=== PATIENT | female | born 1955 | race Caucasian/White ===

== ENCOUNTER 2017-11-23 09:37 | Emergency (ER) | payer MEDICARE, MEDICAID, SELFPAY ==
[2017-11-23 09:44] VITALS: BP 102/73; PULSE 68; RESP 14; TEMP 36.7; O2SAT 98
--- NOTE | 2017-11-23 10:49 | ED.GENADUL_ITS ---
Disposition Clinical Impression: Left ankle sprain, Contusion of right knee Disposition: HOME Condition: Fair Instructions: Ankle Sprain (ED), Contusion in Adults (ED) Additional Instructions: Encourage rest, ice, elevation. Tylenol and/or ibuprofen as needed, as prescribed. Continue to use the Jesús wrap on the right knee and a lace up ankle brace on the left ankle to help with discomfort and swelling. I have asked our pediatric acute care unit nurse to help facilitate follow-up with primary care clear. If you develop new or worsening symptoms please seek care urgently once again. Prescriptions: Acetaminophen [Tylenol Extra Strength] 1,000 mg PO QID PRN #20 tab PRN Reason: Pain Ibuprofen 600 mg PO QID #20 tablet Referrals: Primary Care Provider [Outside] Medical Decision Making - Medical Decision Making Patient presents today with chief complaint of right knee, left foot and ankle pain. On exam, patient is noted to have some soft tissue swelling on the anterior medial aspect of the right knee. She does have some joint line discomfort anteriorly along the medial aspect. She is able straight leg raise well. No pain to palpation over the patella. Good range of motion. No joint effusion is palpable. Ligamentously intact. Given the level of discomfort and persistent discomfort I feel that imaging is appropriate at this time. Will obtain x-rays. We will also obtain imaging of the patient's left ankle and foot. She is noted to have ecchymosis at the base of the second and third digit. No palpable deformity. She does have swelling of the lateral malleolus of the left ankle. This is where her pain is maximal. However, pain is noted fairly globally about the ankle. She does not have discomfort posteriorly. Achilles is palpated to be intact with negative Edward test. Bilateral calves are soft and nontender. Patient will be given Tylenol and ibuprofen for discomfort. Patient has been taking copious amounts of Tylenol, reports she ran out 4 days ago. Had been taking 2000 mg 6 times daily. We did discuss the risks associated with this and advised against continuing dosing this large. Imaging of the patient's right knee, left ankle and left foot reviewed by radiologist. No acute fracture dislocation is noted. Discussed the findings with the patient. Advised ankle sprain. The right knee seems most consistent with soft tissue swelling and ecchymosis. I have asked nursing staff to place an ankle brace on the left and an Jesús wrap on the right knee. Encourage rest, ice, elevation. Tylenol and/or ibuprofen as needed for discomfort. Advise follow-up with primary care. Patient does not currently have a primary care. I have asked her pediatric acute care unit nurse help facilitate follow- up within the next 2 weeks. Advised she may seek care urgently if she develops new or worsening symptoms. All her questions and concerns were addressed and she is in agreement this plan. Secondary to financial restrictions, patient is requesting Tylenol and Ibuprofen prescriptions. History of Present Illness - General Chief complaint: Orthopedic Stated complaint: ANKLE INJURY Time Seen by Provider: 11/23/17 10:43 Source: patient, RN notes reviewed Mode of arrival: ambulatory Limitations: no limitations - History of Present Illness Initial comments: Patient is a 62-year-old female presenting today with chief complaint of right knee, left foot and left ankle pain. She reports that 10 days ago she tripped while walking in the morning. Reports that she fell on the right side but believes that she suffered a rotational event to the left foot and ankle. States that since that time she has had discomfort, particularly ambulation. Is noted swelling to the affected areas. Immediately noted ecchymosis over the second and third toes of the left foot. Denies any altered sensation. States that she also landed on the left outstretched hand and initially had some wrist discomfort that this is since subsided. Ankle pain is reported to be fairly global, has noted swelling laterally. Feels that she does maintain good range of motion of the left ankle. On the right knee, patient has endorse discomfort and swelling primarily along the anterior medial aspect of the knee. - Related Data Aspirin [Aspir 81] 81 mg PO DAILY 03/29/13 Fluticasone Propionate [Flovent 220MCG] 220 inhaler [facility]N DIRECTED PRN Hydrochlorothiazide 25 mg PO DAILY 03/29/13 Levothyroxine Sodium [Synthroid] 50 mcg PO DAILY 03/29/13 Omeprazole 40 mg PO BID 03/29/13 SUMAtriptan [Imitrex] 100 mg PO DIRECTED PRN 03/29/13 Albuterol [Proair Hfa] 2 puff IH PRN PRN 03/05/14 Ascorbic Acid [Vitamin C] 500 mg PO DAILY 03/05/14 Beclomethasone Dipropionate [QVAR 80MCG] 1 puff IH BID 03/05/14 Cranberry 1,000 mg PO DAILY 03/05/14 Vitamin E 600 mg PO DAILY 03/05/14 Gabapentin 300 mg PO 2 TID #180 tab-cap 10/10/17 Duloxetine HCl [Cymbalta] 60 mg PO BID #60 tab-cap 10/12/17 Methylphenidate HCl 20 mg PO TID #90 tab-cap 10/20/17 Quetiapine Fumarate 100 mg PO 1 04/05 @HS #45 tab-cap 10/20/17 Acetaminophen [Tylenol Extra Strength] 1,000 mg PO QID PRN #20 tab 11/23/17 Atorvastatin Calcium 40 mg PO DAILY 11/23/17 Ferrous Sulfate [Slow Fe] 142 mg PO DAILY 11/23/17 Ibuprofen 600 mg PO QID #20 tablet 11/23/17 Multivitamin [One Daily Multivitamin] 1 tab PO DAILY 11/23/17 Triamcinolone 0.1% Cream [Kenalog 0.1% Cream] 1 applic TP BID 11/23/17 Allergies Allergy/AdvReac Type Severity Reaction Status Date / Time morphine AdvReac Intermediate GI Upset Unverified 11/23/17 09:51 Review of Systems Constitutional: no symptoms reported Respiratory: no symptoms reported Musculoskeletal: as per HPI Skin: as per HPI, change in color. denies: rash, lesions Neurological: as per HPI, abnormal gait. denies: numbness, paresthesias Past Medical History - Past Medical History Asthma, migraine, IBS, iron deficiency anemia, hypertension, dysthymia, hype fibromyalgia, hyperlipidemia, hypothyroidism, rheumatism, PTSD, GERD, depression , PE Surgical history: non-contributory General Exam - General Limitations: no limitations General appearance: alert, in no apparent distress - Respiratory Respiratory exam: Present: normal lung sounds bilaterally. Absent: respiratory distress - Cardiovascular Cardiovascular Exam: Present: regular rate, normal rhythm, normal heart sounds - Extremities Exam Extremities exam: Present: full ROM, tenderness, normal capillary refill, joint swelling. Absent: normal inspection (Exam the patient's right lower extremity is significant for discomfort with palpation about the right knee. Pain is primarily along the anterior medial aspect. She does have some soft tissue swelling of this area. No discoloration. Full range of motion. No effusion. Ligamentously intact on exam. No joint line tenderness is elicited. Exam of the patient's left lower extremity is significant for swelling over the lateral aspect of the ankle. She does have good range of motion but pain is elicited with plantar flexion. Pain over the lateral malleoli as well as the ATFL. Patient has no pain with palpation over the proximal fifth metatarsal. No pain with palpation over the Achilles. Achilles is palpated be intact with a negative Edward test. No pain over the fibular head or neck. Patient is noted to have ecchymosis over the proximal aspect of the second and third toes. No palpable deformity. Pain is elicited with palpation over the the second and third metatarsals.), pedal edema, calf tenderness - Neurological Exam Neurological exam: Present: alert, abnormal gait (Ambulating with antalgic gait) . Absent: motor sensory deficit - Psychiatric Psychiatric exam: Present: normal affect, normal mood - Skin Skin exam: Present: warm, dry, intact. Absent: normal color (Ecchymosis as above) Course Vital Signs - 24 hr 11/23/17 09:44 Temperature 36.7 C Pulse 68 Respiratory 14 Rate Blood Pressure 102/73 Pulse Oximetry 98
--- NOTE | 2017-11-23 11:15 | DI.REPORT_ITS ---
SYMPTOM/DIAGNOSIS: FELL, PAIN RIGHT KNEE: Four views were obtained. No fracture is seen. LEFT ANKLE: Three views were obtained. There is marked soft tissue swelling of the ankle. The ankle mortise appears well maintained. No fracture is seen. LEFT FOOT: Three views were obtained. No fracture is seen. Note is made of hallux valgus deformity with secondary degenerative changes of the first MTP joint.
--- NOTE | 2017-11-24 13:33 | PDOC.ERCMPRO ---
Care Management Progress Note 11/24-Clara ARGUETA requested assistance with a PCP (Juani Leal) f/u in two weeks for ankle sprain. Called Jana who stated she would make her own f/u appt as she is in the process of changing providers.
== END 2017-11-23 11:39 | disposition home or self-care (01) ==
PROVIDERS: Emergency Provider Physician Assistant; PCP Family Medicine
DX: S92.402A Displaced unspecified fracture of left great toe, initial encounter for closed fracture (principal); S80.01XA Contusion of right knee, initial encounter; W01.0XXA Fall on same level from slipping, tripping and stumbling without subsequent striking against object, initial encounter
CPT/HCPCS: 73564; 73610; 73630; 99284 ×2; L1902

== ENCOUNTER → 2018-02-16 10:21 | Outpatient (BNVA) | payer MEDICARE, MEDICAID, SELFPAY | PROVIDERS: PCP Family Medicine; Referring Provider Family Medicine; Visit Provider Orthopaedic Surgery | DX: S80.01XA Contusion of right knee, initial encounter (principal); W01.0XXA Fall on same level from slipping, tripping and stumbling without subsequent striking against object, initial encounter | CPT/HCPCS: 99211; 99213 ==

== ENCOUNTER 2018-07-27 12:21 | Outpatient (REF) | payer MEDICARE, MEDICAID, SELFPAY ==
[2018-07-27 13:39] LABS: Abs Immature Grans 0.02 k/cumm (0.0-0.09); Absolute Basophil Count 0.03 k/cumm (0.0-0.2); Absolute Eosinophil Count 0.21 k/cumm (0.0-0.7); Absolute Lymphocyte Count 2.14 k/cumm (1.2-3.4); Absolute Monocyte Count 0.43 k/cumm (0.11-0.7); Absolute Neutrophil Count 4.13 k/cumm (1.2-6.7); Basophils % 0.4; HCT 37.8 % (36.0-46.0); Immature Grans % 0.3; Lymphocytes % 30.7; Mean Corp. HGB Concentration 34.4 g/dL (32.0-36.0); Mean Corpuscular Volume 93.1 fL (80-95); Mean Platelet Volume 10.5 fL (8.0-11.0); Monocytes % 6.2; Neutrophils % 59.4; Platelet Count 279 x1000/uL (130-400); RBC 4.06 m/cumm (4.00-5.20); RBC Distribution Width 12.5 % (11.7-14.6); White Blood Cell Count 6.96 k/cumm (4.4-10.8)
[2018-07-27 14:03] LABS: ALT 29 U/L (12-78); AST 19 U/L (15-37); Albumin 4.2 g/dL (3.4-5.0); Alkaline Phosphatase 74 U/L (46-116); Anion Gap 12.9 mmol/L (3-11); BUN 14 mg/dL (7-18); Bilirubin, Total 0.4 mg/dL (0.2-1.0); CO2 27.1 mmol/L (21.0-32.0); CREATININE 1.23 mg/dL (0.55-1.02); Chloride 99 mmol/L (98-107); Estimated GFR 43.82 (mL/min/1.73m2); Glucose 106 mg/dL (70-100); Potassium 3.4 mmol/L (3.5-5.1); Sodium 139 mmol/L (136-145); TSH (W/Ref FT4) 5.42 uIU/mL (0.358-3.74); Total Protein 7.5 g/dL (6.4-8.2); Vitamin B12 384 pg/mL (193-986)
[2018-07-27 14:24] LABS: FREE T4 0.61 ng/dL (0.76-1.46)
== END 2018-07-27 12:41 ==
LOC: LBN 12:21
PROVIDERS: PCP Family Medicine; Visit Provider Family Medicine
DX: D50.9 Iron deficiency anemia, unspecified (principal); E03.9 Hypothyroidism, unspecified; K58.9 Irritable bowel syndrome, unspecified
CPT/HCPCS: 80053; 82607; 84439; 84443; 85025

== ENCOUNTER 2018-08-08 13:17 | Emergency (ER) | payer MEDICARE, MEDICAID, SELFPAY ==
[2018-08-08] VITALS (22 sets, daily range): BP systolic 111–153; BP diastolic 76–104; PULSE 64–84; RESP 9–25; TEMP 36.5; O2SAT 93–99
--- NOTE | 2018-08-08 13:49 | DI.RAD_ITS ---
SYMPTOMS/DIAGNOSIS: CHEST PAIN, ? ACUTE DISEASE CHEST X-RAY, PA AND LATERAL: Comparison is 04/24/14. The heart is normal in size. The lungs are clear. The mediastinal structures and pleura appear intact. IMPRESSION: Normal chest.
[2018-08-08 13:59] LABS: Abs Immature Grans 0.02 k/cumm (0.0-0.09); Absolute Basophil Count 0.04 k/cumm (0.0-0.2); Absolute Lymphocyte Count 1.99 k/cumm (1.2-3.4); Absolute Monocyte Count 0.48 k/cumm (0.11-0.7); Absolute Neutrophil Count 3.96 k/cumm (1.2-6.7); Basophils % 0.6; HCT 37.6 % (36.0-46.0); HGB 13.2 g/dL (12.0-15.5); Immature Grans % 0.3; Lymphocytes % 29.7; Mean Corp. HGB Concentration 35.1 g/dL (32.0-36.0); Mean Platelet Volume 10.2 fL (8.0-11.0); Monocytes % 7.2; Neutrophils % 59.2; Platelet Count 261 x1000/uL (130-400); RBC Distribution Width 12.7 % (11.7-14.6); White Blood Cell Count 6.69 k/cumm (4.4-10.8)
[2018-08-08 14:14] LABS: ALT 29 U/L (12-78); AST 18 U/L (15-37); Albumin 4.4 g/dL (3.4-5.0); Alkaline Phosphatase 67 U/L (46-116); Anion Gap 11.5 mmol/L (3-11); BUN 19 mg/dL (7-18); Bilirubin, Total 0.4 mg/dL (0.2-1.0); CO2 26.5 mmol/L (21.0-32.0); CREATININE 1.09 mg/dL (0.55-1.02); Chloride 101 mmol/L (98-107); Estimated GFR 50.38 (mL/min/1.73m2); Glucose 118 mg/dL (70-100); Potassium 3.4 mmol/L (3.5-5.1); Sodium 139 mmol/L (136-145)
[2018-08-08 14:15] LABS: Troponin I < 0.02 ng/mL (0.00-0.06)
--- NOTE | 2018-08-08 15:54 | W.ED.GENAD ---
Discharge Plan Disposition Patient Disposition: HOME Condition: Stable Discharge Details Chief Complaint: Chest Pain Clinical Impression: Chronic chest pain, Chronic fatigue Primary Care Provider: Milan Mcgrath ED Provider: Nani Dyson Home Meds and New Rx's Prescriptions: Continued Acidophilus Probiotic Complex 250 million cell capsule 1 cap PO DAILY RF: 0 atorvastatin 40 mg tablet 40 mg PO DAILY Qty: 90 RF: 3 sumatriptan succinate 100 mg tablet 100 mg PO DIRECTED PRN (Reason: Headache) Qty: 10 RF: 3 hydrochlorothiazide 25 mg tablet 25 mg PO DAILY Qty: 90 RF: 3 levothyroxine 50 mcg capsule 50 mcg PO DAILY Qty: 90 RF: 3 polyethylene glycol 3350 17 gram/dose powder 17 gm PO DAILY Qty: 850 RF: 3 duloxetine [Cymbalta] 60 mg capsule,delayed release(DR/EC) 60 mg PO BID Qty: 60 RF: 5 lamotrigine 100 mg tablet 100 mg PO DAILY Qty: 30 RF: 5 quetiapine 100 mg tablet 200 mg PO QHS Qty: 180 RF: 3 aspirin [Aspir-81] 81 MG tablet,delayed release (DR/EC) 81 mg PO DAILY RF: 0 omeprazole 20 MG capsule,delayed release(DR/EC) 40 mg PO BID RF: 0 ascorbic acid (vitamin C) 1,000 MG tablet 500 mg PO DAILY RF: 0 Qvar 8.7 GM aerosol 1 puff Inhalation BID RF: 0 albuterol sulfate [ProAir HFA] 200 PUFF HFA aerosol inhaler 2 puff Inhalation PRN PRNRF: 0 triamcinolone acetonide 15 GM cream 1 applic Topical BID RF: 0 Slow Fe 142 MG tablet extended release 142 mg PO DAILY RF: 0 acetaminophen [Mapap Extra Strength] 500 MG tablet 1,000 mg PO QID PRN (Reason: Pain) Qty: 20 RF: 0 Discharge Instructions Instructions: Chronic Pain (ED), Fatigue (ED) Additional Instructions: Take your regular medications as directed. Follow-up with your scheduled appointment with your primary care doctor. Return immediately to the emergency department with any worsening or new concerning symptoms. Discharge Data Discharge Date/Time-TO BE ENTERED AT DEPARTURE: 08/08/18 16:11 Discharge Physician: Nani Dyson Medical Decision Making 63yo F with a history of GERD, hypertension, hyperlipidemia, hypothyroidism and IBS who presents with not feeling well and chest pain for the past month. EKG notes a rate of 80 in sinus with no acute ST findings. Patient is hemodynamically stable. Patient was referred for lab work and chest x-ray on arrival. Labs reviewed and unremarkable. Troponin negative. Chest x-ray negative. Upon my reassessment of patient, she is requesting to go home. Discussed that we can consider obtaining a urine sample to rule out UTI but patient is declining this, has no symptoms c/w UTI and would rather go home at this time. She denies any chest pain at this time. As her symptoms have been present for 1 month, and intermittent and occasionally associated with shortness of breath and tingling in her hands, this appears more consistent with possibly an anxiety component and she agrees that anxiety is likely a factor. She has no DVT/PE risk factors and no complaint of tearing chest pain so doubt PE or dissection respectively. She is instructed to follow-up with primary care doctor and return here immediately if worse. Medical Records Medical records reviewed: Yes I reviewed the patient's medical records. Imaging Data Radiologic Study: Radiologist's impression: CHEST X-RAY, PA AND LATERAL: Comparison is 04/24/14. The heart is normal in size. The lungs are clear. The mediastinal structures and pleura appear intact. IMPRESSION: Normal chest. Lab Data Lab results reviewed: Yes I reviewed the patient's lab results. Laboratory Tests Range/Units 08/08/18 08/08/18 13:42 13:42 WBC (4.4-10.8) k/cumm 6.69 RBC (4.00-5.20) m/cumm 4.00 Hgb (12.0-15.5) g/dL 13.2 Hct (36.0-46.0) % 37.6 MCV (80-95) fL 94.0 MCH (27.0-33.0) pg 33.0 MCHC (32.0-36.0) g/dL 35.1 RDW (11.7-14.6) % 12.7 Plt Count (130-400) x1000/uL 261 MPV (8.0-11.0) fL 10.2 Immature Gran % 0.3 Neutrophils % 59.2 Lymphocytes % 29.7 Monocytes % 7.2 Eosinophils % 3.0 Basophils % 0.6 Absolute Neutrophils (1.2-6.7) k/cumm 3.96 Absolute Lymphocytes (1.2-3.4) k/cumm 1.99 Absolute Monocytes (0.11-0.7) k/cumm 0.48 Absolute Eosinophils (0.0-0.7) k/cumm 0.20 Absolute Basophils (0.0-0.2) k/cumm 0.04 Sodium (136-145) mmol/L 139 Potassium (3.5-5.1) mmol/L 3.4 L Chloride (98-107) mmol/L 101 Carbon Dioxide (21.0-32.0) mmol/L 26.5 Anion Gap (3-11) mmol/L 11.5 H BUN (7-18) mg/dL 19 H Creatinine (0.55-1.02) mg/dL 1.09 H Estimated GFR/1.73 m2 (mL/min/1.73m2) 50.38 Glucose (70-100) mg/dL 118 H Calcium (8.5-10.1) mg/dL 9.0 Magnesium (1.8-2.4) mg/dL 2.0 Total Bilirubin (0.2-1.0) mg/dL 0.4 AST (15-37) U/L 18 ALT (12-78) U/L 29 Alkaline Phosphatase (46-116) U/L 67 Troponin I (0.00-0.06) ng/mL < 0.02 Total Protein (6.4-8.2) g/dL 8.0 Albumin (3.4-5.0) g/dL 4.4 ECG Data Attestation: I personally reviewed and interpreted this ECG (s) as follows: Interpretation: rate of 80, sinus, no acute ST elevation or depression, QTc 429, QRS 94. HPI General Mode of arrival: ambulatory. Date/Time Provider Initiated Documentation: 08/08/18 13:49. Limitations to Documentation: no limitations. Information obtained by: patient. HPI Narrative: Patient is a 63-year-old female with history of GERD, PTSD, hypertension, hyperlipidemia, hypothyroidism and IBS who presents the ED with complaint of chest pain and not feeling well for the past month. She states she saw her primary care doctor a couple weeks ago for the same symptoms and states she was not given any recommendations or diagnosis. She also admits to fatigue and intermittent shortness of breath but she feels that this is due to her anxiety. She states the chest pain is intermittent, dull and denies any aggravating or alleviating factors. She denies any fever, and states she has a chronic dry cough but states is no worse than usual. She states she has been eating normally and denies any vomiting, diarrhea, urinary symptoms, recent travel, recent surgery or leg pain or swelling. Related Data Home Medications Medication Instructions Recorded Confirmed aspirin [Aspir-81] 81 mg PO DAILY 03/29/13 08/08/18 omeprazole 40 mg PO BID 03/29/13 08/08/18 Qvar 1 puff INHALATION BID 03/05/14 07/27/18 albuterol sulfate [ProAir HFA] 2 puff INHALATION PRN PRN 03/05/14 08/08/18 ascorbic acid (vitamin C) 500 mg PO DAILY 03/05/14 08/08/18 Slow Fe 142 mg PO DAILY 11/23/17 07/27/18 acetaminophen [Mapap Extra 1,000 mg PO QID PRN #20 tab 11/23/17 08/08/18 Strength] triamcinolone acetonide 1 applic TOPICAL BID 11/23/17 08/08/18 duloxetine 60 mg capsule,delayed 60 mg PO BID #60 tab-cap 01/11/18 08/08/18 release lamotrigine 100 mg tablet 100 mg PO DAILY #30 tab 01/11/18 08/08/18 Lactobacill 1 cap PO DAILY cap 01/20/18 07/27/18 acidophilus-L.helvetic-B.bifidum 250 million cell capsule atorvastatin 40 mg tablet 40 mg PO DAILY #90 tab 01/20/18 08/08/18 hydrochlorothiazide 25 mg tablet 25 mg PO DAILY #90 tab 04/20/18 08/08/18 levothyroxine 50 mcg capsule 50 mcg PO DAILY #90 cap 04/20/18 08/08/18 sumatriptan 100 mg tablet 100 mg PO DIRECTED PRN #10 tab 04/20/18 08/08/18 polyethylene glycol 3350 17 17 gm PO DAILY #850 gm 07/27/18 08/08/18 gram/dose oral powder quetiapine 100 mg tablet 200 mg PO QHS #180 tab-cap 08/04/18 08/08/18 Previous Rx's Medication Instructions Recorded acetaminophen [Mapap Extra 1,000 mg PO QID PRN #20 tab 11/23/17 Strength] duloxetine 60 mg capsule,delayed 60 mg PO BID #60 tab-cap 01/11/18 release lamotrigine 100 mg tablet 100 mg PO DAILY #30 tab 01/11/18 atorvastatin 40 mg tablet 40 mg PO DAILY #90 tab 01/20/18 hydrochlorothiazide 25 mg tablet 25 mg PO DAILY #90 tab 04/20/18 levothyroxine 50 mcg capsule 50 mcg PO DAILY #90 cap 04/20/18 sumatriptan 100 mg tablet 100 mg PO DIRECTED PRN #10 tab 04/20/18 polyethylene glycol 3350 17 17 gm PO DAILY #850 gm 07/27/18 gram/dose oral powder quetiapine 100 mg tablet 200 mg PO QHS #180 tab-cap 08/04/18 Allergies Allergy/AdvReac Type Severity Reaction Status Date / Time morphine AdvReac Intermediate GI Upset Verified 08/08/18 13:49 General Stated Complaint: Chest Pain JOSE: 2 Review of Systems Review of Systems All systems reviewed & are unremarkable except as noted in HPI and below Constitutional Reports as per HPI, Denies chills and Denies fever(s) Eyes Denies blurry vision ENT Denies dizziness, Denies sore throat and Denies throat swelling Cardiovascular Denies chest pain and Denies dyspnea Respiratory Denies cough and Denies dyspnea Gastrointestinal Denies abdominal pain, Denies diarrhea and Denies vomiting Genitourinary Denies hematuria and Denies dysuria Musculoskeletal Denies back pain and Denies numbness Integumentary/Breasts Denies lesions and Denies rash Neurologic Denies dizziness, Denies focal weakness and Denies numbness Allergic/Immunologic Denies throat swelling PFSH Medical History Fibromyalgia (Acute) Hypercholesteremia (Acute) Anxiety (Chronic) COPD (chronic obstructive pulmonary disease) (Chronic) Endometriosis (Chronic) Hypertension (Chronic) IBS (irritable bowel syndrome) (Chronic) Migraines (Chronic) Surgical History A-V Fistula Appendectomy Cervical Cryotherapy x3 Hysterectomy Laparoscopy Oophorectomy Rotator Cuff Repair Tonsillectomy Family History Mother Diabetes Essential hypertension Hypothyroidism Father Essential hypertension Heart disease Neoplasm Sister Neoplasm Social History Smoking/Tobacco Use Status: Never Alcohol Intake: current Alcohol Intake frequency: a few times a month Alcohol type: wine Drug use: Never Substance use type: does not use Adopted: No Housing: apartment Number of Children: 1 current occupation: not working What is your relationship status?: Panel score (0-1 are the most socially isolated patients): 0 What type of physical activity do you participate in: walking Seatbelt use: always Drive intox or ride w/intox wagon driver salesperson: No Working smoke detector in home: Yes Fire extinguisher in home: No Carbon monox detector in home: No Do you feel safe at home: Yes Do you feel safe in your relationship?: Yes Exam Const General: cooperative, healthy appearing and no acute distress HENMT Head: normal to inspection Face and sinus: normal facial exam Eyes General: appearance normal, both eyes and all related structures EOM: EOM intact bilaterally Neck Neck: normal visual inspection and No submandibular swelling Lymphatic: no lymphadenopathy noted Chest Chest: normal inspection of the chest and no tenderness Resp Effort & Inspection: normal respiratory effort and able to speak in complete sentences Auscultation: clear to auscultation bilaterally Cardio Rate: regular rate Rhythm: regular rhythm GI Inspection: normal to inspection Palpation: soft, not firm, not rigid and nontender Auscultation: normal bowel sounds Back/Spine/Pelvis Thoracic/Lumbar Spine: thoracic and lumbar spine normal to inspection Skin General skin exam: no rashes or lesions noted Neuro General: alert, awake and oriented x3 Cognition: normal cognition Speech: speech normal Motor: muscle tone normal throughout Sensory Exam: no sensory deficits noted Extrem General: normal to inspection, full ROM, normal capillary refill, no calf tenderness bilaterally and no edema Psych Appearance: grossly normal Mental Status: mental status grossly normal Speech and Movement: speech and movement normal Affect: normal affect Course Vital Signs Temperature 97.7 F 08/08/18 13:27 Pulse 84 08/08/18 13:27 Respiratory Rate 16 08/08/18 13:27 Blood Pressure 153/94 H 08/08/18 13:27 Pulse Oximetry 98 08/08/18 13:27 Temperature 97.7 F 08/08/18 13:27 Temperature Source Temporal Artery Scan 08/08/18 13:27 Pulse 84 08/08/18 13:27 Respiratory Rate 20 08/08/18 13:43 Respiratory Effort Non-Labored 08/08/18 13:43 Respiratory Depth Normal 08/08/18 13:43 Respiratory Pattern Normal 08/08/18 13:43 Blood Pressure 153/94 H 08/08/18 13:27 Pulse Oximetry 98 08/08/18 13:27 Oxygen Delivery Method Room Air 08/08/18 13:27 Oxygen Flow Rate 0 08/08/18 13:27 Pain Level 5 08/08/18 13:43 Lab/Test Results Lab/Test Results: Laboratory Tests Range/Units 08/08/18 08/08/18 13:42 13:42 WBC (4.4-10.8) k/cumm 6.69 RBC (4.00-5.20) m/cumm 4.00 Hgb (12.0-15.5) g/dL 13.2 Hct (36.0-46.0) % 37.6 MCV (80-95) fL 94.0 MCH (27.0-33.0) pg 33.0 MCHC (32.0-36.0) g/dL 35.1 RDW (11.7-14.6) % 12.7 Plt Count (130-400) x1000/uL 261 MPV (8.0-11.0) fL 10.2 Immature Gran % 0.3 Neutrophils % 59.2 Lymphocytes % 29.7 Monocytes % 7.2 Eosinophils % 3.0 Basophils % 0.6 Absolute Neutrophils (1.2-6.7) k/cumm 3.96 Absolute Lymphocytes (1.2-3.4) k/cumm 1.99 Absolute Monocytes (0.11-0.7) k/cumm 0.48 Absolute Eosinophils (0.0-0.7) k/cumm 0.20 Absolute Basophils (0.0-0.2) k/cumm 0.04 Sodium (136-145) mmol/L 139 Potassium (3.5-5.1) mmol/L 3.4 L Chloride (98-107) mmol/L 101 Carbon Dioxide (21.0-32.0) mmol/L 26.5 Anion Gap (3-11) mmol/L 11.5 H BUN (7-18) mg/dL 19 H Creatinine (0.55-1.02) mg/dL 1.09 H Estimated GFR/1.73 m2 (mL/min/1.73m2) 50.38 Glucose (70-100) mg/dL 118 H Calcium (8.5-10.1) mg/dL 9.0 Magnesium (1.8-2.4) mg/dL 2.0 Total Bilirubin (0.2-1.0) mg/dL 0.4 AST (15-37) U/L 18 ALT (12-78) U/L 29 Alkaline Phosphatase (46-116) U/L 67 Troponin I (0.00-0.06) ng/mL < 0.02 Total Protein (6.4-8.2) g/dL 8.0 Albumin (3.4-5.0) g/dL 4.4
== END 2018-08-08 16:11 | disposition home or self-care (01) ==
PROVIDERS: Emergency Provider Physician Assistant; PCP Family Medicine
DX: G89.29 Other chronic pain (principal); R07.9 Chest pain, unspecified; R53.1 Weakness; J44.9 Chronic obstructive pulmonary disease, unspecified; F41.9 Anxiety disorder, unspecified; I10 Essential (primary) hypertension
CPT/HCPCS: 36415; 80053; 93005; 99285; 71046; 83735; 84484; 85025; 93010

== ENCOUNTER → 2018-11-30 10:36 | Outpatient (BNVA) | payer MEDICARE, SELFPAY | PROVIDERS: PCP Family Medicine; Referring Provider Family Medicine; Visit Provider Orthopaedic Surgery | DX: M25.511 Pain in right shoulder (principal); M75.81 Other shoulder lesions, right shoulder; M70.51 Other bursitis of knee, right knee; J44.9 Chronic obstructive pulmonary disease, unspecified; I10 Essential (primary) hypertension | CPT/HCPCS: 20610; 99213; J1040 ==

== ENCOUNTER → 2019-01-10 09:22 | Outpatient (BNVA) | payer MEDICARE, SELFPAY | PROVIDERS: PCP Family Medicine; Referring Provider Family Medicine; Visit Provider Orthopaedic Surgery | DX: M70.51 Other bursitis of knee, right knee (principal); J44.9 Chronic obstructive pulmonary disease, unspecified; I10 Essential (primary) hypertension | CPT/HCPCS: 20610; 99213; J1040 ==

== ENCOUNTER 2019-07-11 07:47 | Emergency (ER) | payer MEDICARE, MEDICAID, SELFPAY ==
[2019-07-11 07:52] VITALS: BP 167/89; PULSE 98; RESP 16; TEMP 36.5; O2SAT 97
--- NOTE | 2019-07-11 08:23 | ED.GENADUL_ITS ---
Discharge Plan Disposition Patient Disposition: HOME Condition: Stable Discharge Details Chief Complaint: RespSymp Clinical Impression: COPD exacerbation Primary Care Provider: Unknown,Unknown ED Provider: Charles Bunn Home Meds and New Rx's Prescriptions: New azithromycin 250 mg tablet See Rx Instructions .ROUTE .COMPLEX Qty: 6 RF: 0 prednisone 20 mg tablet 40 mg PO DAILY 5 Days Qty: 10 RF: 0 Continued Acidophilus Probiotic Complex 250 million cell capsule 1 cap PO DAILY RF: 0 atorvastatin 40 mg tablet 40 mg PO DAILY Qty: 90 RF: 3 sumatriptan succinate 100 mg tablet 100 mg PO DIRECTED PRN (Reason: Headache) Qty: 10 RF: 3 hydrochlorothiazide 25 mg tablet 25 mg PO DAILY Qty: 90 RF: 3 levothyroxine 50 mcg capsule 50 mcg PO DAILY Qty: 90 RF: 3 quetiapine 100 mg tablet 200 mg PO QHS Qty: 180 RF: 3 omeprazole 20 mg capsule,delayed release(DR/EC) 40 mg PO BID Qty: 60 RF: 2 aspirin [Aspir-81] 81 MG tablet,delayed release (DR/EC) 81 mg PO DAILY RF: 0 Qvar 8.7 GM aerosol 1 puff Inhalation BID RF: 0 albuterol sulfate [ProAir HFA] 200 PUFF HFA aerosol inhaler 2 puff Inhalation PRN PRNRF: 0 triamcinolone acetonide 15 GM cream 1 applic Topical BID RF: 0 acetaminophen [Mapap Extra Strength] 500 MG tablet 1,000 mg PO QID PRN (Reason: Pain) Qty: 20 RF: 0 multivitamin Tablet 1 tab PO DAILY RF: 0 Discharge Instructions Instructions: COPD (Chronic Obstructive Pulmonary Disease) (ED) Additional Instructions: Please proceed to outpatient coronavirus testing. Please take prednisone as well as antibiotics as prescribed. Return if develop chest pain, worsening difficulty breathing, or any other acute concerns. Stand Alone Forms: POSITIVE COVID-19/TO BE TESTED Medical Decision Making 63-year-old female with a history of COPD with 3 weeks of cough, congestion, mild sinus pressure. She has been unable to afford an inhaler which was previously prescribed. She has not had chest pain. 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 She arrives to the ER afebrile with a 97% sat on room air, scant expiratory wheezes at the bases but otherwise conversant, well-appearing, in no distress. Different diagnosis includes bronchitis with COPD exacerbation, pneumonitis, viral syndrome. Chest x-ray obtained and no evidence of acute infiltrate. Patient given albuterol MDI with improvement. I do feel she should be screened for coronavirus, but also will treat her for COPD exacerbation with a burst of steroids, ongoing use of inhaler if needed, as well as antibiotics to cover atypical infections. She is stable and improving. Appropriate for outpatient trial. HPI General Mode of arrival: ambulatory . Date/Time Provider Initiated Documentation: 07/11/19 08:08 . Limitations to Documentation: no limitations . Information obtained by: patient . History of Present Illness described as mild and moderate, Quality is described as dull and constant, and is localized to the chest. Patient reports no radiation. Patient started experiencing this week(s) and it has been constant. No relieving factors improve symptom(s), No exacerbating factors reported . Patient notes cough and shortness of breath; denies chest pain. Patient did receive the following treatments prior to arrival, none Related Data Home Medications Medication Instructions Recorded Confirmed aspirin [Aspir-81] 81 mg PO DAILY 03/29/13 07/11/19 Qvar 1 puff INHALATION BID 03/05/14 07/11/19 albuterol sulfate [ProAir HFA] 2 puff INHALATION PRN PRN 03/05/14 07/11/19 acetaminophen [Mapap Extra 1,000 mg PO QID PRN #20 tab 11/23/17 07/11/19 Strength] triamcinolone acetonide 1 applic TOPICAL BID 11/23/17 07/11/19 L.acidophilus,helvet-B.bifidum 250 1 cap PO DAILY cap 01/20/18 07/11/19 million cell capsule atorvastatin 40 mg tablet 40 mg PO DAILY #90 tab 01/20/18 07/11/19 hydrochlorothiazide 25 mg tablet 25 mg PO DAILY #90 tab 04/20/18 07/11/19 levothyroxine 50 mcg capsule 50 mcg PO DAILY #90 cap 04/20/18 07/11/19 sumatriptan succinate 100 mg tablet 100 mg PO DIRECTED PRN #10 tab 04/20/18 07/11/19 quetiapine 100 mg tablet 200 mg PO QHS #180 tab-cap 08/04/18 07/11/19 omeprazole 20 mg capsule,delayed 40 mg PO BID #60 cap 09/25/18 07/11/19 release azithromycin See Rx Instructions .ROUTE 07/11/19 .COMPLEX #6 tab multivitamin 1 tab PO DAILY 07/11/19 07/11/19 prednisone 40 mg PO DAILY 5 Days #10 tab 07/11/19 Previous Rx's Medication Instructions Recorded acetaminophen [Mapap Extra 1,000 mg PO QID PRN #20 tab 11/23/17 Strength] atorvastatin 40 mg tablet 40 mg PO DAILY #90 tab 01/20/18 hydrochlorothiazide 25 mg tablet 25 mg PO DAILY #90 tab 04/20/18 levothyroxine 50 mcg capsule 50 mcg PO DAILY #90 cap 04/20/18 sumatriptan succinate 100 mg tablet 100 mg PO DIRECTED PRN #10 tab 04/20/18 quetiapine 100 mg tablet 200 mg PO QHS #180 tab-cap 08/04/18 omeprazole 20 mg capsule,delayed 40 mg PO BID #60 cap 09/25/18 release azithromycin See Rx Instructions .ROUTE 07/11/19 .COMPLEX #6 tab prednisone 40 mg PO DAILY 5 Days #10 tab 07/11/19 Allergies Allergy/AdvReac Type Severity Reaction Status Date / Time morphine AdvReac Intermediate GI Upset Verified 07/11/19 07:57 General Stated Complaint: RespSymp JOSE: 3 Review of Systems Narrative: Does not have current and use inhaler. Mild intermittent sinus pressure. Occasional production of sputum. States she has otherwise been well. Works as a parking cashier. No leg swelling, no chest pain. See HPI. 8 systems reviewed and otherwise negative [facility] Medical History Anxiety (Chronic) COPD (chronic obstructive pulmonary disease) (Chronic) Endometriosis (Chronic) Fibromyalgia (Acute) Hypercholesteremia (Acute) Hypertension (Chronic) IBS (irritable bowel syndrome) (Chronic) Migraines (Chronic) Surgical History A-V Fistula Appendectomy Cervical Cryotherapy x3 Hysterectomy Laparoscopy Oophorectomy Rotator Cuff Repair Left Tonsillectomy Family History Mother Diabetes Essential hypertension Hypothyroidism Father Essential hypertension Heart disease Neoplasm Colon Sister Neoplasm Uterin Social History (Updated 08/17/18 @ 11:06 by Monika JOHNSON Smoking/Tobacco Use Status: Never Alcohol Intake: current Alcohol Intake frequency: a few times a month Alcohol type: wine Drug use: Never Substance use type: does not use Adopted: No Housing: apartment Number of Children: 1 current occupation: not working What is your relationship status?: Panel score (0-1 are the most socially isolated patients): 0 What type of physical activity do you participate in: walking Seatbelt use: always Drive intox or ride w/intox boom truck driver: No Working smoke detector in home: Yes Fire extinguisher in home: No Carbon monox detector in home: No Do you feel safe at home: Yes Do you feel safe in your relationship?: Yes Exam Narrative Exam Narrative: GEN: awake, alert, oriented 3. Pleasant, well groomed, interactive. HEAD: Normocephalic, atraumatic ENT: Mucous membranes moist, oropharynx unremarkable, External ear exam unremarkable EYES: PERRL, EOMI NECK: Full ROM, no FIDEL, no menigismus CHEST/RESP: Nontender, scant end expiratory wheeze bilateral bases. Otherwise clear. CARDIOVASCULAR: RRR, no murmur, rub idalia. 2+ Rad pulse bilateral ABDOMEN: Soft, nontender, no mass. +Bowel sounds EXT: Full ROM, no edema, no rash Neuro: Grossly normal neurologic exam, conversant, interactive. Psych: Speech fluent, thoughts congruent, affect normal Course Vital Signs Vital signs: Vital Signs Temperature 36.5 C 07/11/19 07:52 Pulse 98 H 07/11/19 07:52 Respiratory Rate 16 07/11/19 07:52 Blood Pressure 167/89 H 07/11/19 07:52 Pulse Oximetry 97 07/11/19 07:52 Temperature 36.5 C 07/11/19 07:52 Temperature Source Skin 07/11/19 07:52 Pulse 98 H 07/11/19 07:52 Respiratory Rate 16 07/11/19 07:52 Respiratory Effort Non-Labored 07/11/19 08:01 Respiratory Depth Normal 07/11/19 08:01 Blood Pressure 167/89 H 07/11/19 07:52 Blood Pressure Position Sitting 07/11/19 07:52 Pulse Oximetry 97 07/11/19 07:52 Oxygen Delivery Method Room Air 07/11/19 07:52 Oxygen Flow Rate 0 07/11/19 07:52 Pain Level 5 07/11/19 07:52
--- NOTE | 2019-07-11 08:44 | DI.RAD_ITS ---
EXAM: XR PORTABLE CHEST AP CLINICAL HISTORY: cough, hx COPD. TECHNIQUE: 2D digital imaging was performed. COMPARISON: XR CHEST 2V PA LATERAL from 08/08/2018 FINDINGS: LUNGS: Clear. No pleural abnormality seen. HEART: Normal. MEDIASTINUM: Normal. OTHER FINDINGS: None. IMPRESSION: No acute pulmonary findings. DATA REPOSITORY: RADIATION DOSE DELIVERED:
[2019-07-11] MEDS: Albuterol HFA 8 GM 60 PUFF INH IH (08:48)
== END 2019-07-11 09:20 | disposition home or self-care (01) ==
LOC: ER 09:13
PROVIDERS: Emergency Provider Emergency Medicine
DX: J44.1 Chronic obstructive pulmonary disease with (acute) exacerbation (principal); T44.5X6A Underdosing of predominantly beta-adrenoreceptor agonists, initial encounter; Z91.120 Patient's intentional underdosing of medication regimen due to financial hardship; I10 Essential (primary) hypertension
CPT/HCPCS: 99283; U0003; 71045

== ENCOUNTER 2019-07-11 09:16 | Outpatient (CLI) | payer MEDICARE, SELFPAY ==
[2019-07-14 22:17] LABS: SARS-CoV-2 RNA Undetected (Undetected); SARS-CoV-2 Specimen Source Nasopharynx
== END 2019-07-11 09:36 ==
PROVIDERS: Visit Provider Emergency Medicine
DX: Z11.59 Encounter for screening for other viral diseases (principal)
CPT/HCPCS: U0003

== ENCOUNTER → 2019-08-22 09:34 | Outpatient (BNVA) | payer MEDICARE, MEDICAID, SELFPAY | PROVIDERS: Visit Provider Orthopaedic Surgery | DX: M75.81 Other shoulder lesions, right shoulder (principal); M70.51 Other bursitis of knee, right knee | CPT/HCPCS: 20610; 99214; J1040 ==

== ENCOUNTER → 2019-10-03 09:02 | Outpatient (BNVA) | payer MEDICARE, MEDICAID, SELFPAY | PROVIDERS: PCP Family Medicine; Referring Provider Family Medicine; Visit Provider Orthopaedic Surgery | DX: M70.51 Other bursitis of knee, right knee (principal); M75.81 Other shoulder lesions, right shoulder | CPT/HCPCS: 99213 ==

== ENCOUNTER 2020-01-09 00:55 | Outpatient (CLI) | payer MEDICARE, MEDICAID, SELFPAY ==
--- NOTE | 2020-01-09 | DI.RAD_ITS ---
EXAM: XR SINUS LIMITED 2V CLINICAL HISTORY: SINUS CONGESTION,R09.81, COUGH,R05 TECHNIQUE: COMPARISON: No exams were available for comparison FINDINGS: Two views were obtained. Paranasal sinuses appear grossly well aerated as visualized. Please note that radiographs of the sinuses are insensitive in detecting significant sinus disease in comparison with CT. IMPRESSION: No gross evidence of sinusitis. RADIATION DOSE DELIVERED: Total DLP
--- NOTE | 2020-01-09 09:34 | DI.RAD_ITS ---
EXAM: XR CHEST 2V PA LATERAL CLINICAL HISTORY: COUGH, R05 TECHNIQUE: 2D digital imaging was performed. COMPARISON: CR XR PORTABLE CHEST AP from 07/11/2019 FINDINGS: The heart is not enlarged. The lungs are clear and well expanded. No pleural effusion seen. Mediastin al contours appear intact. IMPRESSION: Normal chest RADIATION DOSE DELIVERED: Total DLP
== END 2020-01-09 01:15 ==
PROVIDERS: PCP Family Medicine; Visit Provider Family Medicine
DX: R09.81 Nasal congestion (principal); R05 Cough
CPT/HCPCS: 70210; 71046

== ENCOUNTER 2020-06-18 11:21 | Outpatient (CLI) | payer MEDICARE, MEDICAID, SELFPAY ==
--- NOTE | 2020-06-18 10:42 | DI.RAD_ITS ---
EXAM: XR SHOULDER RT COMPLETE 2+V CLINICAL HISTORY: right shoulder pain. TECHNIQUE: 2D digital imaging was performed. COMPARISON: CR RIGHT SHOULDER COMPLETE from 04/15/2009 FINDINGS: There is no evidence of fracture or dislocation. However, there is small osteophyte on the inferior articular surface of the humeral head now evident. Glenohumeral joint does not exhibit significant n arrowing nor does the subacromial space and there is no soft tissue calcification within the non dimi nished subacromial space. Mild degenerative changes in the AC joint noted. Bone density is age-appr opriate. No osseous lesions. IMPRESSION: Degenerative changes in the glenohumeral joint (moderate). DATA REPOSITORY: RADIATION DOSE DELIVERED:
== END 2020-06-18 11:22 | disposition home or self-care (01) ==
LOC: DIORS 11:21
PROVIDERS: PCP Family Medicine; Referring Provider Family Medicine; Visit Provider Student in an Organized Health Care Education/Training Program
DX: M19.011 Primary osteoarthritis, right shoulder (principal); M75.81 Other shoulder lesions, right shoulder; M75.21 Bicipital tendinitis, right shoulder; M75.51 Bursitis of right shoulder; M75.41 Impingement syndrome of right shoulder; J44.9 Chronic obstructive pulmonary disease, unspecified
CPT/HCPCS: 99203; 99213; 73030

== ENCOUNTER → 2020-12-04 15:22 | Outpatient (BNVA) | payer OTHER, MEDICAID, SELFPAY | PROVIDERS: PCP Family Medicine; Referring Provider Family Medicine; Visit Provider Physical Therapy Assistant | DX: K59.00 Constipation, unspecified (principal); R03.0 Elevated blood-pressure reading, without diagnosis of hypertension | CPT/HCPCS: 99215 ==

== ENCOUNTER → 2021-01-29 10:51 | Outpatient (BNVA) | payer OTHER, MEDICAID, SELFPAY | PROVIDERS: PCP Family Medicine; Referring Provider Family Medicine; Visit Provider Physical Therapy Assistant | DX: K21.9 Gastro-esophageal reflux disease without esophagitis (principal); K59.00 Constipation, unspecified; K58.9 Irritable bowel syndrome, unspecified; E03.9 Hypothyroidism, unspecified; D50.8 Other iron deficiency anemias; Z09 Encounter for follow-up examination after completed treatment for conditions other than malignant neoplasm | CPT/HCPCS: 36415; 99214 ==

== ENCOUNTER 2021-01-29 15:44 | Outpatient (REF) | payer OTHER, MEDICAID, SELFPAY ==
[2021-01-29 14:39] LABS: Abs Immature Grans 0.03 10^3/uL (0.0-0.06); Absolute Basophil Count 0.05 10^3/uL (0.0-0.2); Absolute Eosinophil Count 0.15 10^3/uL (0.0-0.7); Absolute Lymphocyte Count 1.65 10^3/uL (1.2-3.4); Absolute Monocyte Count 0.47 10^3/uL (0.1-0.8); Absolute Neutrophil Count 3.93 10^3/uL (1.2-6.7); Basophils % 0.8; Eosinophils % 2.4; HCT 36.2 % (36.0-46.0); HGB 11.5 g/dL (11.2-15.7); Immature Grans % 0.5; Lymphocytes % 26.3; MCH 28.7 pg (27.0-33.0); MCHC 31.8 % (32.0-36.0); MCV 90.3 fL (80-95); MPV 10.9 fL (8.0-11.0); Monocytes % 7.5; Neutrophils % 62.5; Nucleated RBC 0 %; Platelet Count 296 10^3/uL (130-400); RBC 4.01 10^6/uL (3.93-5.22); RDW 14.5 % (11.7-14.6); RDW-SD 47.6 fL; WBC 6.28 10^3/uL (4.4-10.8)
[2021-01-29 14:53] LABS: Hemoglobin A1C 6.7 % (<5.7)
[2021-01-29 15:25] LABS: ALT 23 U/L (14-59); AST 18 U/L (15-37); Alkaline Phosphatase 86 U/L (46-116); Anion Gap 9.9 mmol/L (3-11); BUN 21 mg/dL (7-18); Bilirubin, Total 0.2 mg/dL (0.2-1.0); CO2 26.1 mmol/L (21.0-32.0); CREATININE 1.2 mg/dL (0.55-1.02); Calcium 8.9 mg/dL (8.5-10.1); Chloride 106 mmol/L (98-107); Estimated GFR 44.81 (mL/min/1.73m2); Glucose 112 mg/dL (74-106); Potassium 3.8 mmol/L (3.5-5.1); Sodium 142 mmol/L (136-145); TSH (W/Ref FT4) 6.39 uIU/mL (0.36-3.74); Total Protein 7.8 g/dL (6.4-8.2); Vitamin B12 489 pg/mL (193-986)
[2021-01-29 15:44] LABS: FREE T4 0.48 ng/dL (0.76-1.46)
== END 2021-01-29 15:45 | disposition home or self-care (01) ==
LOC: LBN 15:44
PROVIDERS: PCP Family Medicine; Visit Provider Physical Therapy Assistant
DX: K21.00 Gastro-esophageal reflux disease with esophagitis, without bleeding; K59.00 Constipation, unspecified; K58.9 Irritable bowel syndrome, unspecified
CPT/HCPCS: 80053; 82607; 83036; 84439; 84443; 85025

== ENCOUNTER 2021-02-04 03:10 | Outpatient (CLI) | payer OTHER, MEDICAID, SELFPAY ==
[2021-02-04 11:01] LABS: Source Nasal/Nares
[2021-02-04 13:11] LABS: COVID-19 PCR Negative (Negative)
== END 2021-02-04 03:11 | disposition home or self-care (01) ==
LOC: LBO 03:11
PROVIDERS: PCP Family Medicine; Visit Provider Surgery
DX: Z20.822 Contact with and (suspected) exposure to COVID-19 (principal)
CPT/HCPCS: 87635

== ENCOUNTER 2021-04-06 17:16 | Outpatient (REF) | payer OTHER, MEDICAID, SELFPAY ==
[2021-04-06 15:49] LABS: Bilirubin Negative (Negative); Blood Trace-intact (Negative); Clarity Sl Cloudy (Clear); Glucose Negative (Negative); Ketones Negative (Negative); Leukocyte Esterase Moderate (Negative); Nitrite Negative (Negative); Specific Gravity >= 1.030 (1.005-1.025); Urobilinogen 0.2 EU/dL (Up TO 0.2); pH 5.5 (5-8)
[2021-04-06 15:56] LABS: Bacteria Moderate HPF (Negative); Crystals Negative HPF (Negative); Epithelial Cells Rare HPF (Negative); WBC >50 HPF (0-5)
[2021-04-06 15:57] LABS: C & S Indicated? Yes; Casts Negative LPF (Negative); Mucus Trace (Negative)
== END 2021-04-06 17:17 | disposition home or self-care (01) ==
LOC: LBN 17:16
PROVIDERS: PCP Family Medicine; Visit Provider Nurse Practitioner Family
DX: R10.2 Pelvic and perineal pain (principal)
CPT/HCPCS: 81003; 81015; 87086; 87186

== ENCOUNTER 2021-06-08 13:13 | Outpatient (CLI) | payer OTHER, MEDICAID, SELFPAY ==
--- NOTE | 2021-06-08 10:15 | DI.RAD_ITS ---
Exam(s) XR KNEE RT 3V AP,LAT,HAMZAH EXAM: XR KNEE RT 3V AP,LAT,HAMZAH CLINICAL HISTORY: knee pain. TECHNIQUE: 2D digital imaging was performed. COMPARISON: CR XR KNEE LT 3V AP,LAT,HAMZAH from 06/08/2021 FINDINGS: BONES: No acute fracture is present. No bony destructive lesion is seen. Spurring medial femoral co ndyle, medial tibial plateau and tibial spines. Mild spurring articular aspect of patella. JOINTS: Mild narrowing medial femoral tibial joint space. The knee is normally aligned. No joint eff usion is seen. SOFT TISSUE: Normal. IMPRESSION: Akif-bi-yzhcpbbn degenerative changes medial femoral tibial joint. DATA REPOSITORY: RADIATION DOSE DELIVERED:
--- NOTE | 2021-06-08 10:15 | DI.RAD_ITS ---
Exam(s) XR KNEE LT 3V AP,LAT,HAMZAH EXAM: XR KNEE LT 3V AP,LAT,HAMZAH CLINICAL HISTORY: knee pain. TECHNIQUE: 2D digital imaging was performed. COMPARISON: No exams were available for comparison FINDINGS: BONES: No acute fracture is present. No bony destructive lesion is seen. JOINTS: Mild medial femoral tibial joint space narrowing and mild adjacent spurring. Mild spurring t ibial spines. Lateral femoral tibial joint space well maintained. Mild spurring articular aspect of the patella. No joint effusion is seen. SOFT TISSUE: Normal. IMPRESSION: Mild degenerative changes medial femoral tibial joint.. DATA REPOSITORY: RADIATION DOSE DELIVERED:
== END 2021-06-08 13:14 | disposition home or self-care (01) ==
LOC: DIORS 13:13
PROVIDERS: PCP Family Medicine; Referring Provider Family Medicine; Visit Provider Student in an Organized Health Care Education/Training Program
DX: M17.11 Unilateral primary osteoarthritis, right knee; M17.12 Unilateral primary osteoarthritis, left knee
CPT/HCPCS: 20610; 73562; J1040

== ENCOUNTER 2021-06-15 16:22 | Outpatient (REF) | payer OTHER, MEDICAID, SELFPAY | END 2021-06-15 16:23 | disposition home or self-care (01) | LOC: LBN 16:22 | PROVIDERS: PCP Family Medicine; Visit Provider Family Medicine | DX: R10.2 Pelvic and perineal pain (principal) | CPT/HCPCS: 87077; 87086; 87186 ==

== ENCOUNTER 2021-07-22 09:24 | Outpatient (CLI) | payer OTHER, MEDICAID, SELFPAY ==
--- NOTE | 2021-07-22 09:00 | DI.RAD_ITS ---
Exam(s) XR SHOULDER LT COMPLETE 2+V EXAM: XR SHOULDER LT COMPLETE 2+V CLINICAL HISTORY: left shoulder injury TECHNIQUE: COMPARISON: CR XR SHOULDER RT COMPLETE 2+V from 06/18/2020 FINDINGS: Three views were obtained. The cartilaginous joint space of the glenohumeral joint appears fairly we ll maintained. There are mild hypertrophic degenerative changes of the glenohumeral and acromioclavi cular joints. No acute fracture or dislocation seen. IMPRESSION: RADIATION DOSE DELIVERED: Total DLP
== END 2021-07-22 09:25 | disposition home or self-care (01) ==
LOC: DIORS 09:25
PROVIDERS: PCP Family Medicine; Referring Provider Family Medicine; Visit Provider Physician Assistant
DX: S46.012A Strain of muscle(s) and tendon(s) of the rotator cuff of left shoulder, initial encounter; V48.5XXA Car driver injured in noncollision transport accident in traffic accident, initial encounter; M17.11 Unilateral primary osteoarthritis, right knee; M17.12 Unilateral primary osteoarthritis, left knee
CPT/HCPCS: 99213; 73030

== ENCOUNTER 2021-09-10 10:02 | Outpatient (CLI) | payer OTHER, MEDICAID, SELFPAY ==
--- NOTE | 2021-09-10 09:36 | DI.RAD_ITS ---
Exam(s) XR HIP LT COMPLETE AP PELVIS EXAM: XR HIP LT COMPLETE AP PELVIS CLINICAL HISTORY: L knee pain with hip ROM. TECHNIQUE: 2D digital imaging was performed. COMPARISON: No exams were available for comparison FINDINGS: Two views No evidence of pelvic nor hip fracture. There is minimal symmetrical narrowing of the hip joint spac es. No osteophytes evident. Bone density normal. No osseous lesions. IMPRESSION: DATA REPOSITORY: RADIATION DOSE DELIVERED:
== END 2021-09-10 10:03 | disposition home or self-care (01) ==
LOC: DIORS 10:03
PROVIDERS: PCP Family Medicine; Visit Provider Physician Assistant
DX: M17.12 Unilateral primary osteoarthritis, left knee; M70.52 Other bursitis of knee, left knee
CPT/HCPCS: 20610; 73502; J1040

== ENCOUNTER 2022-01-04 11:35 | Outpatient (REF) | payer OTHER, MEDICAID, SELFPAY ==
[2022-01-04 14:31] LABS: Abs Immature Grans 0.01 10^3/uL (0.0-0.06); Absolute Basophil Count 0.07 10^3/uL (0.0-0.2); Absolute Eosinophil Count 0.27 10^3/uL (0.0-0.7); Absolute Lymphocyte Count 1.62 10^3/uL (1.2-3.4); Absolute Monocyte Count 0.45 10^3/uL (0.1-0.8); Absolute Neutrophil Count 3.71 10^3/uL (1.2-6.7); Basophils % 1.1; Eosinophils % 4.4; HCT 33.4 % (36.0-46.0); HGB 10.8 g/dL (11.2-15.7); Immature Grans % 0.2; Lymphocytes % 26.4; MCH 28.6 pg (27.0-33.0); MCHC 32.3 % (32.0-36.0); MCV 89 fL (80-95); MPV 11.4 fL (8.0-11.0); Monocytes % 7.3; Neutrophils % 60.6; Platelet Count 283 10^3/uL (130-400); RBC 3.77 10^6/uL (3.93-5.22); RDW 13.9 % (11.7-14.6); WBC 6.13 10^3/uL (4.4-10.8)
[2022-01-04 14:52] LABS: NT-proBNP 103 pg/mL (<300); TSH 5.54 uIU/mL (0.36-3.74)
== END 2022-01-04 11:36 | disposition home or self-care (01) ==
LOC: LBN 11:35
PROVIDERS: PCP Family Medicine; Visit Provider Nurse Practitioner Family
DX: R53.83 Other fatigue (principal); R06.02 Shortness of breath
CPT/HCPCS: 83880; 84443; 85025

== ENCOUNTER 2022-01-11 18:20 | Outpatient (REF) | payer OTHER, MEDICAID, SELFPAY ==
[2022-01-11 20:18] LABS: Iron 85 ug/dL (50-170); Total Iron Binding Capacity 436 ug/dL (250-450); Transferrin Sat 19 % (15-50)
[2022-01-11 20:20] LABS: Hemoglobin A1C 6.7 % (<5.7)
[2022-01-11 20:55] LABS: ALT 36 U/L (14-59); AST 28 U/L (15-37); Albumin 4.3 g/dL (3.4-5.0); Alkaline Phosphatase 96 U/L (46-116); Anion Gap 11.8 mmol/L (3-11); BUN 24 mg/dL (7-18); Bilirubin, Total 0.4 mg/dL (0.2-1.0); CO2 25.2 mmol/L (21.0-32.0); CREATININE 1.2 mg/dL (0.55-1.02); Calcium 9.3 mg/dL (8.5-10.1); Chloride 101 mmol/L (98-107); Estimated GFR 49.31 (mL/min/1.73m2); Ferritin 15 ng/mL (8-252); Folate 7.4 ng/mL (8.6-20.0); Glucose 113 mg/dL (74-106); Potassium 4.6 mmol/L (3.5-5.1); Sodium 138 mmol/L (136-145); Total Protein 7.4 g/dL (6.4-8.2); Vitamin B12 467 pg/mL (193-986)
[2022-01-11 22:52] LABS: FREE T4 0.59 ng/dL (0.76-1.46)
== END 2022-01-11 18:21 | disposition home or self-care (01) ==
LOC: LBN 18:20
PROVIDERS: PCP Family Medicine; Visit Provider Nurse Practitioner Family
DX: D64.9 Anemia, unspecified (principal); R73.01 Impaired fasting glucose; E03.9 Hypothyroidism, unspecified; Z79.899 Other long term (current) drug therapy
CPT/HCPCS: 80053; 82607; 82728; 82746; 83036; 83540; 83550; 84439

== ENCOUNTER → 2022-04-26 07:59 | Outpatient (BNVA) | payer OTHER, MEDICAID, SELFPAY | PROVIDERS: PCP Family Medicine; Referring Provider Family Medicine; Visit Provider Student in an Organized Health Care Education/Training Program | DX: M70.52 Other bursitis of knee, left knee (principal) | CPT/HCPCS: 20610; J1030 ==

== ENCOUNTER 2022-09-29 13:11 | Emergency (ER) | payer OTHER, MEDICAID, SELFPAY ==
[2022-09-29 13:19] VITALS: BP 164/76; PULSE 87; RESP 16; TEMP 36.3; O2SAT 99
[2022-09-29] MEDS: Dexamethasone 10 MG/ML VIAL IVP (13:48)
[2022-09-29] MEDS: CLINDAMYCIN 600 MG/50 ML BAG 100 MG IVPB (13:49)
[2022-09-29 13:55] LABS: Abs Immature Grans 0.02 10^3/uL (0.0-0.06); Absolute Basophil Count 0.08 10^3/uL (0.0-0.2); Absolute Eosinophil Count 0.32 10^3/uL (0.0-0.7); Absolute Lymphocyte Count 1.42 10^3/uL (1.2-3.4); Absolute Monocyte Count 0.67 10^3/uL (0.1-0.8); Absolute Neutrophil Count 3.72 10^3/uL (1.2-6.7); Anion Gap 10.9 mmol/L (3-11); BUN 17 mg/dL (7-18); Basophils % 1.3; CO2 25.1 mmol/L (21.0-32.0); CREATININE 1.2 mg/dL (0.55-1.02); Calcium 8.6 mg/dL (8.5-10.1); Chloride 103 mmol/L (98-107); Eosinophils % 5.1; Glucose 151 mg/dL (74-106); HCT 33.8 % (36.0-46.0); HGB 10.5 g/dL (11.2-15.7); Immature Grans % 0.3; Lymphocytes % 22.8; MCH 27.6 pg (27.0-33.0); MCHC 31.1 % (32.0-36.0); MCV 89 fL (80-95); MPV 10.3 fL (8.0-11.0); Monocytes % 10.8; Neutrophils % 59.7; Platelet Count 186 10^3/uL (130-400); RBC 3.81 10^6/uL (3.93-5.22); RDW 18.8 % (11.7-14.6); RDW-SD 60.6 fL; Sodium 139 mmol/L (136-145); WBC 6.23 10^3/uL (4.4-10.8)
--- NOTE | 2022-09-29 14:03 | ED.GENADUL_ITS ---
Discharge Plan Disposition Patient Disposition: Home Discharge Details Clinical Impression: Abscess, dental, Facial swelling Primary Care Provider: Juani Leal ED Provider: Valerie Mitchell Home Meds and New Rx's Prescriptions: New clindamycin HCl 300 mg capsule 300 mg PO Q6H Qty: 40 0RF Continued Acidophilus Probiotic Complex 250 million cell capsule 1 cap PO DAILY atorvastatin 40 mg tablet 40 mg PO DAILY Qty: 90 3RF sumatriptan succinate 100 mg tablet 100 mg PO DIRECTED PRN (Reason: Headache) Qty: 10 3RF levothyroxine 50 mcg capsule 50 mcg PO DAILY Qty: 90 3RF omeprazole 20 mg capsule,delayed release(DR/EC) 40 mg PO BID Qty: 60 2RF metformin 500 mg tablet 500 mg PO DAILY Pulmicort Flexhaler 90 mcg/actuation aerosol powdr breath activated 2 inh inhalation BID gabapentin 400 mg capsule 600 mg PO TID cranberry 500 mg capsule 1,000 mg PO DAILY fluticasone propionate [Flonase Allergy Relief] 50 mcg/actuation spray,suspension 1 spray intranasal QHS Rx Instructions: administer into each nostril venlafaxine [Effexor XR] 75 mg capsule,extended release 24hr 75 mg PO DAILY Rx Instructions: to be taken with 150mg cap, per pcp medlist venlafaxine [Effexor XR] 150 mg capsule,extended release 24hr 150 mg PO DAILY quetiapine 300 mg tablet 300 mg PO QHS meloxicam 15 mg tablet 15 mg PO DAILY aspirin [Aspir-81] 81 MG tablet,delayed release (DR/EC) 81 mg PO DAILY multivitamin Tablet 1 tab PO DAILY baclofen 10 mg tablet 5 mg PO TID Patient Comments: TAKE ONE-HALF TABLET BY MOUTH THREE TIMES A DAY baclofen 10 mg tablet 5 mg PO TID Discharge Instructions Instructions: Dental Abscess (ED) Additional Instructions: Take the antibiotic as prescribed Yogurt daily while on antibiotic You have an appointment tomorrow morning with your dentist, please go to this appointment I am also writing you for oxycodone, this medication can be addictive, use it very sparingly and you should not drive for 8 hours after taking this medication Please return immediately should you have difficulty swallowing, fever, chills, or she develop any new or worsening complaints including chest discomfort Referrals: Juani Leal [Primary Care Provider] - Discharge Data Discharge Date/Time-TO BE ENTERED AT DEPARTURE: 09/29/22 15:44 Medical Decision Making 67-year-old female presenting with left lower dental pain and swelling, swelling to the left anterior neck, no trismus, uvula midline, oropharynx patent Maintaining secretions Labs are unchanged from prior, CBC and CMP reviewed CT neck ordered to evaluate for any airway involvement States he does not show evidence of Rene's angina per radiology interpretation and my review, maintaining secretions Antibiotic initiated, Has an appointment with dentist tomorrow Return precautions reviewed and patient expressed understanding, discharged home in stable condition with stable vitals HPI General Date/Time Provider Initiated Documentation: 09/29/22 13:21 . HPI Narrative: This 67-year-old female presents with left lower dental pain rating into her jaw since Tuesday. She was told to come in by her dentist secondary to increasing swelling. She does have an appointment tomorrow morning reportedly. She denies any fever or chills. She denies chest pain or shortness of breath. She does report she had some mild intermittent difficulty swallowing. Related Data Home Medications Medication Instructions Recorded Confirmed aspirin 81 mg tablet,delayed 81 mg PO DAILY 03/29/13 09/29/22 release (Aspir-) Lactobacill 1 cap PO DAILY 01/20/18 09/29/22 acidophilus-L.helvetic-B.bifidum 250 million cell capsule (Acidophilus Probiotic Complex) atorvastatin 40 mg tablet 40 mg PO DAILY #90 tabs 01/20/18 09/29/22 levothyroxine 50 mcg capsule 50 mcg PO DAILY #90 caps 04/20/18 09/29/22 sumatriptan succinate 100 mg tablet 100 mg PO DIRECTED PRN Headache 04/20/18 09/29/22 #10 tabs omeprazole 20 mg capsule,delayed 40 mg PO BID #60 caps 09/25/18 09/29/22 release multivitamin 1 tab PO DAILY 07/11/19 09/29/22 budesonide 90 mcg/actuation breath 2 inh inhalation BID 05/12/21 09/29/22 activated powder inhaler (Pulmicort Flexhaler) cranberry 500 mg capsule 1,000 mg PO DAILY 05/12/21 09/29/22 fluticasone propionate 50 1 spray intranasal QHS 05/12/21 09/29/22 mcg/actuation nasal spray,suspension (Flonase Allergy Relief) gabapentin 400 mg capsule 600 mg PO TID 05/12/21 09/29/22 meloxicam 15 mg tablet 15 mg PO DAILY 05/12/21 09/29/22 metformin 500 mg tablet 500 mg PO DAILY 05/12/21 09/29/22 quetiapine 300 mg tablet 300 mg PO QHS 05/12/21 09/29/22 venlafaxine 150 mg 150 mg PO DAILY 05/12/21 09/29/22 capsule,extended release 24 hr (Effexor XR) venlafaxine 75 mg capsule,extended 75 mg PO DAILY 05/12/21 09/29/22 release 24 hr (Effexor XR) baclofen 10 mg tablet 5 mg PO TID 09/29/22 09/29/22 baclofen 10 mg tablet 5 mg PO TID 09/29/22 09/29/22 clindamycin HCl 300 mg capsule 300 mg PO Q6H #40 caps 09/29/22 Previous Rx's Medication Instructions Recorded atorvastatin 40 mg tablet 40 mg PO DAILY #90 tabs 01/20/18 levothyroxine 50 mcg capsule 50 mcg PO DAILY #90 caps 04/20/18 sumatriptan succinate 100 mg tablet 100 mg PO DIRECTED PRN Headache 04/20/18 #10 tabs omeprazole 20 mg capsule,delayed 40 mg PO BID #60 caps 09/25/18 release clindamycin HCl 300 mg capsule 300 mg PO Q6H #40 caps 09/29/22 Allergies Allergy/AdvReac Type Severity Reaction Status Date / Time morphine AdvReac Severe Very sick Verified 09/29/22 13:21 General Stated Complaint: DentalOral JOSE: 4 PFSH All Active Problems (Updated 09/29/22 @ 15:29 by ELLIE Ro) Abscess, dental (Acute) Facial swelling (Acute) Pes anserinus bursitis of left knee (Acute) Injection: 04/26/2022; 09/10/2021 Strain of tendon of left rotator cuff (Acute) Primary osteoarthritis of left knee (Acute) Most recent steroid injection: 09/10/21; 06/08/2021 Synvisc injection: March 2021 with reported allergic reaction Primary osteoarthritis of right knee (Acute) Multiple steroid injections in the past by Dr. Frederick Chronic GERD (Acute 11/08/17) Chronic post-traumatic stress disorder (PTSD) (Acute 11/08/17) Dysthymia (Acute 11/08/17) Essential hypertension (Acute 11/08/17) Fibromyalgia (Acute 11/08/17) Hyperlipidemia (Acute 11/08/17) Hypothyroidism (Acute 11/08/17) Insomnia (Acute 11/08/17) Iron deficiency anemia secondary to inadequate dietary iron intake (Acute 11/08/17) Irritable bowel syndrome without diarrhea (Acute 11/08/17) Major depressive disorder with single episode (Acute 11/08/17) Migraine without status migrainosus (Acute 11/08/17) Pulmonary emboli (Acute 11/08/17) Rheumatism (Acute 11/08/17) Uncomplicated asthma (Acute 11/08/17) Polyp of colon (Acute 11/08/17) Personality disorder (Acute 11/08/17) Peripheral neuropathy (Acute) [facility] Right rotator cuff tendonitis (Acute) Pes anserinus bursitis of right knee (Acute) Arthritis of right shoulder region (Acute) Tendonitis of long head of biceps brachii of right shoulder (Acute) Bursitis of right shoulder (Acute) Impingement syndrome of right shoulder (Acute) Constipation (Acute) Medical History (Updated 09/29/22 @ 15:29 by ELLIE Ro) Anxiety COPD (chronic obstructive pulmonary disease) Endometriosis Fibromyalgia Hypercholesteremia Hypertension IBS (irritable bowel syndrome) Migraines Surgical History (Updated 02/04/21 @ 14:25 by Gagandeep Serrano) A-V Fistula Does not have fistula per pt. Appendectomy Cervical Cryotherapy x3 Hysterectomy Laparoscopy Oophorectomy Rotator Cuff Repair Left Tonsillectomy Family History Mother Diabetes Essential hypertension Hypothyroidism Father Essential hypertension Heart disease Neoplasm Colon Sister Neoplasm Uterin Social History (Updated 01/29/21 @ 12:54 by ELLIE Yun) Smoking/Tobacco Use Status: Never Smoking risk assessment performed?: Yes Alcohol Intake: current Alcohol Intake frequency: a few times a week Alcohol type: beer Drug use: Never Substance use type: does not use Adopted: No Housing: apartment Number of Children: 1 current occupation: not working Current gender identity: female What is your relationship status?: Panel score (0-1 are the most socially isolated patients): 0 What type of physical activity do you participate in: walking Seatbelt use: always Drive intox or ride w/intox independent driver: No Working smoke detector in home: Yes Fire extinguisher in home: No Carbon monox detector in home: No Do you feel safe at home: Yes Do you feel safe in your relationship?: Yes Course Vital Signs Vital signs: Vital Signs Temperature 36.3 C L 09/29/22 13:19 Pulse 87 09/29/22 13:19 Respiratory Rate 16 09/29/22 13:19 Blood Pressure 164/76 H 09/29/22 13:19 Pulse Oximetry 99 09/29/22 13:19 Temperature 36.3 C L 09/29/22 13:19 Temperature Source Skin 09/29/22 13:19 Pulse 87 09/29/22 13:19 Respiratory Rate 16 09/29/22 13:19 Blood Pressure 164/76 H 09/29/22 13:19 Blood Pressure Position Sitting 09/29/22 13:19 Pulse Oximetry 99 09/29/22 13:19 Oxygen Delivery Method Room Air 09/29/22 13:19 Oxygen Flow Rate 0 09/29/22 13:19 Pain Level 9 09/29/22 13:19 Lab/Test Results Lab/Test Results: Laboratory Tests Range/Units 09/29/22 09/29/22 13:35 13:35 WBC (4.4-10.8) 10^3/uL 6.23 RBC (3.93-5.22) 10^6/uL 3.81 L Hgb (11.2-15.7) g/dL 10.5 L Hct (36.0-46.0) % 33.8 L MCV (80-95) fL 89 MCH (27.0-33.0) pg 27.6 MCHC (32.0-36.0) % 31.1 L RDW (11.7-14.6) % 18.8 H Plt Count (130-400) 10^3/uL 186 MPV (8.0-11.0) fL 10.3 Immature Gran % 0.3 Neutrophils % 59.7 Lymphocytes % 22.8 Monocytes % 10.8 Eosinophils % 5.1 Basophils % 1.3 Nucleated RBC % (0.0-0.3) % 0.0 Absolute Neutrophils (1.2-6.7) 10^3/uL 3.72 Absolute Lymphocytes (1.2-3.4) 10^3/uL 1.42 Absolute Monocytes (0.1-0.8) 10^3/uL 0.67 Absolute Eosinophils (0.0-0.7) 10^3/uL 0.32 Absolute Basophils (0.0-0.2) 10^3/uL 0.08 Sodium (136-145) mmol/L 139 Potassium (3.5-5.1) mmol/L 4.0 Chloride (98-107) mmol/L 103 Carbon Dioxide (21.0-32.0) mmol/L 25.1 Anion Gap (3-11) mmol/L 10.9 BUN (7-18) mg/dL 17 Creatinine (0.55-1.02) mg/dL 1.2 H Est GFR (CKD-EPI 2020) (mL/min/1.73m2) 49.00 Glucose (74-106) mg/dL 151 H Calcium (8.5-10.1) mg/dL 8.6
[2022-09-29] MEDS: Omnipaque 350 MG/ML 100 ML BTL IJ (14:43)
[2022-09-29] MEDS: Normal Saline Flush 10 ML SYR IVP (14:44)
[2022-09-29] MEDS: Normal Saline - Diluent 50 ML VIAL IJ (14:44)
--- NOTE | 2022-09-29 14:55 | DI.CT_ITS ---
Exam(s) CT NECK W EXAM: CT NECK W CLINICAL HISTORY: submandibular swelling, left lower dental pain. TECHNIQUE: Imaging Protocol: Axial computed tomography images with coronal and sagittal reformatted images were created and reviewed. CONTRAST MATERIAL: Intravenous: Contrast Contrast volume:structured data in mlmL COMPARISON: CT CHEST/ABD WO from 03/29/2013 FINDINGS: The examination is limited due to patient motion artifact. Orbits and orbital soft tissues: Within normal limits. Visualized paranasal sinuses: Within normal limits. Nasopharynx: Within normal limits. Oropharynx: Within normal limits. Hypopharynx: Within normal limits. Larynx: Within normal limits. Retropharyngeal space: Within normal limits. Parotids/submandibular: Within normal limits. Thyroid gland: Within normal limits. Lymphadenopathy: There are mildly enlarged lymph nodes seen in the left submandibular region. The l argest lymph node measures 0.9 x 0.7 cm. Trachea: Within normal limits. There is no narrowing of the airway. Lung apices: Within normal limits. Bones: Within normal limits for the patient's age. Carotids/Jugular: Within normal limits. Soft tissues: There is soft tissue infiltration in the left submandibular region with thickening of the left platysma. No focal fluid collection is seen to suggest an abscess. The musculature appear s symmetric and unremarkable. IMPRESSION: 1. Cellulitis of the left submandibular region. No focal fluid collection is seen to suggest an absc ess. Reactive adenopathy is appreciated. 2. No evidence of airway narrowing. 3. Findings were discussed with Valerie Mitchell on 09/29/2022. RADIATION DOSE DELIVERED: 407.34mGy.cm Total DLP 407.34mGy.cm Total DLP DATA REPOSITORY: All CT scans at this facility are submitted to the National Radiology Data Registry (NRDR) Dose Index Registry (DIR) with the [employer] ([employer]). RADIATION OPTIMIZATION: All CT scans at this facility use at least one of these dose optimization te chniques: automated exposure control; mA and/or kV adjustment per patient size (includes targeted exa ms where dose is matched to clinical indication); or iterative reconstruction.
[2022-09-29 14:57] VITALS: BP 160/97; PULSE 74; RESP 17; O2SAT 100
[2022-09-29 15:41] VITALS: BP 138/91; PULSE 75; TEMP 35.9; O2SAT 99
== END 2022-09-29 15:44 | disposition home or self-care (01) ==
PROVIDERS: Emergency Provider Physician Assistant; PCP Family Medicine
DX: K04.7 Periapical abscess without sinus (principal); R22.0 Localized swelling, mass and lump, head
CPT/HCPCS: 36415; 70491; 80048; 96365; 96375; 99285; 85025; 99284; J1100; J3490

== ENCOUNTER → 2022-12-21 13:25 | Outpatient (BNVA) | payer OTHER, MEDICAID, SELFPAY | PROVIDERS: PCP Family Medicine; Referring Provider Family Medicine | DX: M70.52 Other bursitis of knee, left knee (principal); M17.12 Unilateral primary osteoarthritis, left knee | CPT/HCPCS: 20610; J1040 ==

== ENCOUNTER → 2023-02-11 10:20 | Outpatient (BNVA) | payer OTHER, MEDICAID, SELFPAY | PROVIDERS: PCP Family Medicine; Referring Provider Family Medicine; Visit Provider Student in an Organized Health Care Education/Training Program | DX: M23.92 Unspecified internal derangement of left knee (principal); M70.52 Other bursitis of knee, left knee; M17.12 Unilateral primary osteoarthritis, left knee | CPT/HCPCS: 99213 ==

== ENCOUNTER → 2023-03-02 02:50 | Outpatient (CLI) | payer OTHER, MEDICAID, SELFPAY ==
--- NOTE | 2023-03-02 07:30 | DI.MRI_ITS ---
Exam(s) MR LOWER JOINT LT WO EXAM: MR LOWER JOINT LT WO CLINICAL HISTORY: PAIN,internal derangement, m23.92. TECHNIQUE: Multiplanar multisequence MRI was performed. COMPARISON: CR XR KNEE LT 3V AP,LAT,HAMZAH from 06/08/2021 FINDINGS: BONES: There is now depression of the medial tibial plateau and a fracture of the lateral aspect of t he medial tibial plateau. There is an intermediate signal well-circumscribed defect in the lateral t ibial plateau. There is edema seen in the medial femoral condyle and medial tibial plateau. JOINTS: Degenerative changes are seen involving all 3 joint compartments characterized by joint space narrowing loss of the articular cartilage in osteophytes. The findings are most marked in the baker lofemoral and medial femoral tibial joint. There is a moderate size joint effusion. TENDONS: Extensor mechanism: Unremarkable. Medial retinaculum: Unremarkable. Lateral retinaculum: Unremarkable. Popliteus: Unremarkable. MUSCLES: Unremarkable. MENISCI: There is a tear of the body and posterior horn of the medial meniscus. The body of the medi al meniscus shows marked abnormal signal and size. The lateral meniscus is unremarkable. SOFT TISSUES: There is a popliteal cyst with a small loose body present there is edema seen in the pr epatellar soft tissues. LIGAMENTS: Anterior Cruciate: Unremarkable. Posterior Cruciate: Unremarkable. Medial Collateral:Unremarkable. Lateral Collateral: Unremarkable. OTHER: IMPRESSION: 1. There is a tear of the body and posterior horn of the medial meniscus. 2. Depression of the medial tibial plateau with findings suspicious for fracture. A CT scan of the k nee is recommended for further evaluation. 3. Marked degenerative changes in the knee particularly the medial femoral tibial joint in the patell ofemoral joint. 4. Joint effusion and popliteal cyst. Unexpected findings DATA REPOSITORY:
== END ==
PROVIDERS: PCP Family Medicine; Visit Provider Student in an Organized Health Care Education/Training Program
DX: M23.222 Derangement of posterior horn of medial meniscus due to old tear or injury, left knee (principal); M25.462 Effusion, left knee
CPT/HCPCS: 73721

== ENCOUNTER 2023-03-17 02:16 | Outpatient (CLI) | payer OTHER, MEDICAID, SELFPAY ==
[2023-03-17 15:33] LABS: HGB 12.1 g/dL (11.2-15.7); MCH 32.4 pg (27.0-33.0); MCHC 33.6 % (32.0-36.0); MCV 96 fL (80-95); MPV 9.7 fL (8.0-11.0); Platelet Count 273 10^3/uL (130-400); RBC 3.74 10^6/uL (3.93-5.22); RDW 12.9 % (11.7-14.6); RDW-SD 45.6 fL; WBC 8.92 10^3/uL (4.4-10.8)
[2023-03-17 16:29] LABS: Anion Gap 9.1 mmol/L (3-11); BUN 17 mg/dL (7-18); CO2 27.9 mmol/L (21.0-32.0); CREATININE 1.2 mg/dL (0.55-1.02); Calcium 9.3 mg/dL (8.5-10.1); Chloride 104 mmol/L (98-107); Glucose 109 mg/dL (74-106); Potassium 4.3 mmol/L (3.5-5.1); Sodium 141 mmol/L (136-145)
== END 2023-03-17 02:17 | disposition home or self-care (01) ==
LOC: LBO 02:16
PROVIDERS: PCP Family Medicine; Visit Provider Student in an Organized Health Care Education/Training Program
DX: M17.12 Unilateral primary osteoarthritis, left knee (principal); Z01.818 Encounter for other preprocedural examination
CPT/HCPCS: 36415; 80048; 85027; 99214

== ENCOUNTER 2023-03-17 15:20 | Outpatient (CLI) | payer OTHER, MEDICAID, SELFPAY ==
--- NOTE | 2023-03-17 15:04 | DI.RAD_ITS ---
Exam(s) XR STANDING ALIGNMENT EXAM: XR STANDING ALIGNMENT CLINICAL HISTORY: left knee DJD. TECHNIQUE: 2D digital imaging was performed. Standing AP views were performed from the pelvis throu gh the ankles. COMPARISON: No exams were available for comparison FINDINGS: BONES: No acute fracture is present. No bony destructive lesion is seen. Leg length discrepancy: No significant overall leg length discrepancy. JOINTS: Knees: Severe degenerative changes of the medial femoral tibial joint space of the left knee. Mild degenerative changes of the right knee. The ankle joints are unremarkable. The hip joints show mild degenerative change, right greater than left. SOFT TISSUE: Normal. IMPRESSION: Severe degenerative changes of the medial femoral tibial joint space of the left knee.. No significant leg length discrepancy. DATA REPOSITORY: RADIATION DOSE DELIVERED:
== END 2023-03-17 15:21 | disposition home or self-care (01) ==
LOC: DIORS 15:21
PROVIDERS: PCP Family Medicine; Referring Provider Family Medicine; Visit Provider Physician Assistant
DX: M17.12 Unilateral primary osteoarthritis, left knee (principal)
CPT/HCPCS: 77073

== ENCOUNTER 2023-04-02 17:03 | Emergency (ER) | payer OTHER, MEDICAID, SELFPAY ==
--- NOTE | 2023-04-02 17:00 | DI.RAD_ITS ---
Exam(s) XR CHEST 2V PA LATERAL EXAM: XR CHEST 2V PA LATERAL CLINICAL HISTORY: cough TECHNIQUE: 2D digital imaging was performed. COMPARISON: CR XR CHEST 2V PA LATERAL from 01/09/2020 FINDINGS: HEART: Normal size. Aorta: Not dilated. PULMONARY VASCULATURE: Normal. LUNGS: Clear. PLEURAL SPACE: No pleural effusion or pneumothorax. BONE:Unremarkable for age. Soft tissues: Unremarkable. IMPRESSION: No acute abnormality. DATA REPOSITORY: RADIATION DOSE DELIVERED:
[2023-04-02 17:04] VITALS: BP 157/85; PULSE 108; RESP 16; TEMP 36.2; O2SAT 97
[2023-04-02] MEDS: predniSONE 20 MG TAB 60 MG PO (17:29)
[2023-04-02] MEDS: Albuterol/Ipratropium 3 ML UPD VIAL UPD (17:31)
--- NOTE | 2023-04-02 17:35 | ED.GENADUL_ITS ---
Discharge Plan Disposition Patient Disposition: Home Discharge Details Clinical Impression: RSV bronchitis, Cough, Asthma exacerbation in COPD Primary Care Provider: Yamileth Schmid ED Provider: Colton Yancey Home Meds and New Rx's Prescriptions: New prednisone 20 mg tablet 40 mg PO DAILY 5 Days Qty: 10 0RF promethazine 6.25 mg/5 mL syrup 12.5 mg PO Q6H PRN (Reason: cough) Qty: 120 0RF benzonatate 100 mg capsule 100 mg PO TID PRN (Reason: cough) Qty: 30 0RF doxycycline hyclate 100 mg tablet 100 mg PO BID 5 Days Qty: 10 0RF No Action Acidophilus Probiotic Complex 250 million cell capsule 1 cap PO DAILY atorvastatin 40 mg tablet 40 mg PO DAILY Qty: 90 3RF sumatriptan succinate 100 mg tablet 100 mg PO DIRECTED PRN (Reason: Headache) Qty: 10 3RF magnesium oxide 500 mg capsule 500 mg PO DAILY alprazolam 0.5 mg tablet 0.5 mg PO ONCE PRN (Reason: claustrophobia) Qty: 2 0RF Rx Instructions: Take within 3o minutes of MRI. Repeat x 1 if necessary. omeprazole 20 mg capsule,delayed release(DR/EC) 40 mg PO BID Qty: 60 2RF metformin 500 mg tablet 500 mg PO DAILY Pulmicort Flexhaler 90 mcg/actuation aerosol powdr breath activated 2 inh inhalation BID gabapentin 400 mg capsule 600 mg PO TID cranberry 500 mg capsule 1,000 mg PO DAILY fluticasone propionate [Flonase Allergy Relief] 50 mcg/actuation spray,suspension 1 spray intranasal QHS Rx Instructions: administer into each nostril venlafaxine [Effexor XR] 75 mg capsule,extended release 24hr 75 mg PO DAILY Rx Instructions: to be taken with 150mg cap, per pcp medlist venlafaxine [Effexor XR] 150 mg capsule,extended release 24hr 150 mg PO DAILY quetiapine 300 mg tablet 300 mg PO QHS aspirin [Aspir-81] 81 MG tablet,delayed release (DR/EC) 81 mg PO DAILY multivitamin Tablet 1 tab PO DAILY baclofen 10 mg tablet 5 mg PO TID Patient Comments: TAKE ONE-HALF TABLET BY MOUTH THREE TIMES A DAY baclofen 10 mg tablet 5 mg PO TID Discharge Instructions Instructions: COPD (Chronic Obstructive Pulmonary Disease) (ED) Additional Instructions: Take medication as prescribed. Use albuterol inhaler 2 puffs every 4 hours with spacer into the start to feel better. Return to the emergency department if you are not tolerating the medications, you start to have high fevers, worsening symptoms Medical Decision Making Emergent evaluation of URI symptoms. Initial differential includes viral illness, COPD exacerbation, less likely pneumonia. Patient is not hypoxic or tachypneic. She is afebrile. She has signs of a viral illness, with out significant respiratory distress. Will give steroids and breathing treatment secondary to her history. Will get chest x-ray and reassess. 192: RSV testing is positive. Chest x-ray does not demonstrate a consolidation. Received steroids and bronchodilator in the emergency department. Plan for discharge home with cough medication, steroid course, albuterol MDI with spacer provided in the emergency department, also will treat with doxycycline course given her history of COPD. Strict return precautions advised. Patient is stable for discharge home. Recommend following up with her primary care provider after the holiday. Medical Records Medical records reviewed: Yes I reviewed the patient's medical records. Lab Data Lab results reviewed: Yes I reviewed the patient's lab results. HPI General Date/Time Provider Initiated Documentation: 04/02/23 17:07 . Limitations to Documentation: no limitations . Information obtained by: patient . HPI Narrative: 67-year-old female with past medical history of COPD, hypertension presents for evaluation of cough and shortness of breath.Cough is frequent, nonproductive. Not associated with fever. Symptoms for the last 5 days. Exposed to grandson who is RSV positive. Has not been using breathing treatments at home. Denies any chest pain. Related Data Home Medications Medication Instructions Recorded Confirmed aspirin 81 mg tablet,delayed 81 mg PO DAILY 03/29/13 04/02/23 release (Aspir-) Lactobacill 1 cap PO DAILY 01/20/18 04/02/23 acidophilus-L.helvetic-B.bifidum 250 million cell capsule (Acidophilus Probiotic Complex) atorvastatin 40 mg tablet 40 mg PO DAILY #90 tabs 01/20/18 04/02/23 sumatriptan succinate 100 mg tablet 100 mg PO DIRECTED PRN Headache 04/20/18 04/02/23 #10 tabs omeprazole 20 mg capsule,delayed 40 mg (2 x 20 mg) PO BID #60 caps 09/25/18 04/02/23 release multivitamin 1 tab PO DAILY 07/11/19 04/02/23 budesonide 90 mcg/actuation breath 2 inh inhalation BID 05/12/21 04/02/23 activated powder inhaler (Pulmicort Flexhaler) cranberry 500 mg capsule 1,000 mg PO DAILY 05/12/21 04/02/23 fluticasone propionate 50 1 spray intranasal QHS 05/12/21 04/02/23 mcg/actuation nasal spray,suspension (Flonase Allergy Relief) gabapentin 400 mg capsule 600 mg PO TID 05/12/21 04/02/23 metformin 500 mg tablet 500 mg PO DAILY 05/12/21 04/02/23 quetiapine 300 mg tablet 300 mg PO QHS 05/12/21 04/02/23 venlafaxine 150 mg 150 mg PO DAILY 05/12/21 04/02/23 capsule,extended release 24 hr (Effexor XR) venlafaxine 75 mg capsule,extended 75 mg PO DAILY 05/12/21 04/02/23 release 24 hr (Effexor XR) baclofen 10 mg tablet 5 mg PO TID 09/29/22 04/02/23 baclofen 10 mg tablet 5 mg PO TID 09/29/22 04/02/23 magnesium oxide 500 mg capsule 500 mg PO DAILY 12/21/22 04/02/23 alprazolam 0.5 mg tablet 0.5 mg PO ONCE PRN claustrophobia 02/16/23 04/02/23 #2 tabs benzonatate 100 mg capsule 100 mg PO TID PRN cough #30 caps 04/02/23 doxycycline hyclate 100 mg tablet 100 mg PO BID 5 days #10 tabs 04/02/23 prednisone 20 mg tablet 40 mg (2 x 20 mg) PO DAILY 5 days 04/02/23 #10 tabs promethazine 6.25 mg/5 mL oral 12.5 mg (10 mL) PO Q6H PRN cough 04/02/23 syrup #120 mL Previous Rx's Medication Instructions Recorded atorvastatin 40 mg tablet 40 mg PO DAILY #90 tabs 01/20/18 sumatriptan succinate 100 mg tablet 100 mg PO DIRECTED PRN Headache 04/20/18 #10 tabs omeprazole 20 mg capsule,delayed 40 mg (2 x 20 mg) PO BID #60 caps 09/25/18 release alprazolam 0.5 mg tablet 0.5 mg PO ONCE PRN claustrophobia 02/16/23 #2 tabs benzonatate 100 mg capsule 100 mg PO TID PRN cough #30 caps 04/02/23 doxycycline hyclate 100 mg tablet 100 mg PO BID 5 days #10 tabs 04/02/23 prednisone 20 mg tablet 40 mg (2 x 20 mg) PO DAILY 5 days 04/02/23 #10 tabs promethazine 6.25 mg/5 mL oral 12.5 mg (10 mL) PO Q6H PRN cough 04/02/23 syrup #120 mL Allergies Allergy/AdvReac Type Severity Reaction Status Date / Time morphine AdvReac Severe Very sick Verified 04/02/23 17:51 General Stated Complaint: RespSymp JOSE: 3 PFSH All Active Problems (Updated 04/02/23 @ 19:22 by Colton Yancey MD) Asthma exacerbation in COPD (Acute) Cough (Acute) RSV bronchitis (Acute) Internal derangement of left knee (Acute) Pes anserinus bursitis of left knee (Acute) Injection: 04/26/2022; 09/10/2021 Strain of tendon of left rotator cuff (Acute) Primary osteoarthritis of left knee (Acute) Most recent steroid injection: 12/21/22; 09/10/21; 06/08/2021 Synvisc injection: March 2021 with reported allergic reaction Primary osteoarthritis of right knee (Acute) Multiple steroid injections in the past by Dr. Frederick Chronic GERD (Acute 11/08/17) Chronic post-traumatic stress disorder (PTSD) (Acute 11/08/17) Dysthymia (Acute 11/08/17) Essential hypertension (Acute 11/08/17) Fibromyalgia (Acute 11/08/17) Hyperlipidemia (Acute 11/08/17) Hypothyroidism (Acute 11/08/17) Insomnia (Acute 11/08/17) Iron deficiency anemia secondary to inadequate dietary iron intake (Acute 11/08/17) Irritable bowel syndrome without diarrhea (Acute 11/08/17) Major depressive disorder with single episode (Acute 11/08/17) Migraine without status migrainosus (Acute 11/08/17) Pulmonary emboli (Acute 11/08/17) Rheumatism (Acute 11/08/17) Uncomplicated asthma (Acute 11/08/17) Polyp of colon (Acute 11/08/17) Personality disorder (Acute 11/08/17) Peripheral neuropathy (Acute) [facility] Zamorano DPM Right rotator cuff tendonitis (Acute) Pes anserinus bursitis of right knee (Acute) Arthritis of right shoulder region (Acute) Tendonitis of long head of biceps brachii of right shoulder (Acute) Bursitis of right shoulder (Acute) Impingement syndrome of right shoulder (Acute) Constipation (Acute) Medical History Fibromyalgia Anxiety IBS (irritable bowel syndrome) Migraines Hypercholesteremia Hypertension COPD (chronic obstructive pulmonary disease) Endometriosis Surgical History Tonsillectomy Rotator Cuff Repair Left Oophorectomy Laparoscopy Hysterectomy Cervical Cryotherapy x3 Appendectomy A-V Fistula Does not have fistula per pt. Family History Mother Diabetes Essential hypertension Hypothyroidism Father Essential hypertension Heart disease Neoplasm Colon Sister Neoplasm Uterin Social History Smoking/Tobacco Use Status: Never Smoking risk assessment performed?: Yes Alcohol Intake: current Alcohol Intake frequency: a few times a week Alcohol type: beer Drug use: Never Substance use type: does not use Adopted: No Housing: apartment Number of Children: 1 current occupation: not working Current gender identity: female What is your relationship status?: Panel score (0-1 are the most socially isolated patients): 0 What type of physical activity do you participate in: walking Seatbelt use: always Drive intox or ride w/intox laundry route driver: No Working smoke detector in home: Yes Fire extinguisher in home: No Carbon monox detector in home: No Do you feel safe at home: Yes Do you feel safe in your relationship?: Yes Exam Narrative Exam Narrative: Review of Systems: All systems reviewed & are unremarkable except as noted in HPI and below Well-developed, no acute distress NACT + Nasal congestion + Posterior oropharynx erythema without exudates PERRL, normal conjunctiva RRR Unlabored respiratory effort, expiratory wheezing Nondistended abdomen Extremities w/o deformity, no cyanosis, no edema No rashes or lesions. no focal neurologic deficits Appropriate mood and affect Course Vital Signs Vital signs: Vital Signs Temperature 36.2 C L 04/02/23 17:04 Pulse 108 H 04/02/23 17:04 Respiratory Rate 16 04/02/23 17:04 Blood Pressure 157/85 H 04/02/23 17:04 Pulse Oximetry 97 04/02/23 17:04 Temperature 36.2 C L 04/02/23 17:04 Temperature Source Skin 04/02/23 17:04 Pulse 108 H 04/02/23 17:04 Respiratory Rate 16 04/02/23 17:04 Blood Pressure 157/85 H 04/02/23 17:04 Blood Pressure Position Sitting 04/02/23 17:04 Pulse Oximetry 97 04/02/23 17:04 Oxygen Delivery Method Room Air 04/02/23 17:04 Oxygen Flow Rate 0 04/02/23 17:04 Pain Level 5 04/02/23 17:04
--- OUTSIDE RECORDS SUMMARY | 2023-04-02 17:39 | XMS_ITS | Continuity of Care Document ---
Author Name Unknown Organization [facility] Ambulatory Clinics Address [address] [place] [address] Care Team Providers Care Tester Regulator Name Role Phone Charles Noel DO Primary Care Physician Encounter [facility] NBR [id number] Date(s): 03/18/22 - 03/18/22 [facility] Ambulatory Clinics [address], [place] [address] Encounter Diagnosis Left knee injury(Discharge Diagnosis) - 03/18/22 Arthritis of knee(Discharge Diagnosis) - 03/18/22 Discharge Disposition: Home or Self Care Attending Physician: Charles Noel DO Allergies, Adverse Reactions, Alerts Substance Reaction Severity Status morphine stomach upset Unknown Active Morphine Sulfate Unknown Active Sodium Hyaluronate Injection Unknown Unknown Active Functional Status 03/18/22 Other exposure to Infectious Disease Non e Immunizations Given and Recorded Vaccine Date Status Refusal Reason influenza virus vaccine, inactivated 01/08/21 Augustus rded influenza virus vaccine, inactivated 08/02/20 Augustus rded influenza virus vaccine, inactivated 01/08/19 Augustus rded influenza virus vaccine, inactivated 02/18/17 Augustus rded influenza virus vaccine, inactivated 03/04/16 Augustus rded influenza virus vaccine, inactivated 03/27/15 Augustus rded zoster vaccine, inactivated 09/24/20 Recorded SARS-CoV-2 (COVID-19) mRNA-1273 vaccine 08/02/20 R ecorded tetanus/diphth/pertuss (Tdap) adult/adol 03/20/19 Recorded pneumococcal 23-polyvalent vaccine 01/08/19 Record ed pneumococcal 13-valent conjugate vaccine 02/18/17 Recorded Medications aspirin 81 mg oral delayed release tablet 81 mg = 1 tab, Oral, Daily, Baby orange flavored ., # 30 tab, 0 Refill(s) Start Date: 03/18/22 Status: Ordered atorvastatin 80 mg oral tablet 80 mg = 1 tab, Oral, Daily, # 90 tab, 3 Refill(s), Pharmacy: [id number] Start Date: 02/26/22 Stop Date: 02/21/23 Status: Ordered baclofen 10 mg oral tablet 5 mg = 0.5 tab, Oral, TID, # 45 tab, 5 Refill(s), Pharmacy: [id number] Start Date: 01/13/22 Status: Ordered blood pressure kit blood pressure kit, Supply, See instructions, # 1 EA, 0 Refill(s) Start Date: 03/18/22 Status: Ordered Cranberry oral capsule 1,000 mg, Daily, 0 Refill(s) Start Date: 01/12/22 Status: Ordered Effexor XR 150 mg oral capsule, extended release 150 mg = 1 cap, Oral, Daily, take along with 75mg (total 225mg), # 30 cap, 0 Refill(s) Start Date: 01/12/22 Status: Ordered Effexor XR 75 mg oral capsule, extended release 75 mg = 1 cap, Oral, Daily, # 30 cap, 0 Refill(s) Start Date: 03/18/22 Status: Ordered Flonase 50 mcg/inh nasal spray 1 sprays, Nasal, every evening, 0 Refill(s) Start Date: 01/12/22 Status: Ordered gabapentin 600 mg oral tablet 600 mg = 1 tab, Oral, TID, # 270 tab, 3 Refill(s), Pharmacy: [id number] Start Date: 01/12/22 Stop Date: 01/07/23 Status: Ordered IBU-200 oral tablet 5 tablets, Oral, Every moring ., 0 Refill(s) Start Date: 03/18/22 Status: Ordered levothyroxine 125 mcg (0.125 mg) oral tablet 1 tab, Oral, every morning, ON AN EMPTY STOMACH., # 45 tab, 2 Refill(s), Pharmacy: [facility] Start Date: 01/23/22 Status: Ordered meloxicam 15 mg oral tablet 15 mg = 1 tab, Oral, Daily, # 90 tab, 1 Refill(s), Pharmacy: [facility] Start Date: 02/23/22 Stop Date: 08/22/22 Status: Ordered MetFORMIN (Eqv-Glucophage XR) 500 mg oral tablet, extended release 500 mg = 1 tab, Oral, Daily, # 90 tab, 3 Refill(s), Pharmacy: [facility] Start Date: 01/13/22 Status: Ordered omeprazole 40 mg oral delayed release capsule 40 mg = 1 cap, Oral, TID, DO NOT TAKE WITH LEVOTHYROXINE, # 90 cap, 0 Refill(s) Start Date: 01/12/22 Status: Ordered Pulmicort Flexhaler 90 mcg/inh inhalation powder 2 puffs, Inhale, BID, # 1 EA, 0 Refill(s) Start Date: 03/18/22 Status: Ordered QUEtiapine 300 mg oral tablet 300 mg = 1 tab, Oral, every day at bedtime, # 90 tab, 0 Refill(s) Start Date: 03/18/22 Status: Ordered SUMAtriptan 100 mg oral tablet 100 mg = 1 tab, Oral, Daily, PRN as needed for migraine headache, may repeat dose after 2 hours up to a maximum of 200 mg in 24 hours, # 9 tab, 3 Refill(s), Pharmacy: [id number] Start Date: 01/07/22 Stop Date: 05/07/22 Status: Ordered Vitamin B-12 1000 mcg oral tablet 1,000 mcg = 1 tab, Oral, Daily, # 30 tab, 0 Refill(s) Start Date: 03/18/22 Status: Ordered Problem List Condition Confirmation Course Effective Dates Status Health Status Informant Bipolar 2 disorder Confirmed Active Bipolar 2 disorder Confirmed Active Trochanteric bursitis Confirmed Active Chronic constipation Confirmed Active Constipation, chronic Confirmed Active Chronic kidney disease, stage 3a Confirmed Active Chronic kidney disease, stage 3a Confirmed Active Other chronic pain Confirmed Active Other chronic pain Confirmed Active Chronic post-traumatic stress disorder (PTSD) Confirmed Active Depression Confirmed Active Essential hypertension Confirmed Active Essential hypertension Confirmed Active Asthma, exercise induced Confirmed Active Exercise-induced asthma Confirmed Active Fibromyalgia Confirmed Active Fibromyalgia Confirmed Active Gastric polyp Confirmed Active GERD (gastroesophageal reflux disease) Confirmed Active Chronic GERD Confirmed Active Hypercholesterolemia Confirmed Active Hyperlipidemia, unspecified Confirmed Active Hyperlipidemia, unspecified Confirmed Active Hypothyroidism Confirmed Active Hypothyroidism, unspecified Confirmed Active Insomnia, unspecified Confirmed Active Insomnia, unspecified Confirmed Active Iron deficiency anemia, unspecified Confirmed Active Iron deficiency anemia, unspecified Confirmed Active Irritable bowel syndrome without diarrhea Confirmed Active Major depressive disorder, single episode, unspecified Confirmed Active Major depressive disorder Confirmed Active Migraine, unspecified, not intractable, without status migrainosus Confirmed Active OA (osteoarthritis) Confirmed Active OAB (overactive bladder) Confirmed Active Cancer screening Confirmed Active Personality disorder Confirmed Active Colon polyp Confirmed Active PTSD (post-traumatic stress disorder) Confirmed Active Prediabetes Confirmed Active Prediabetes Confirmed Active Primary gonarthrosis, bilateral Confirmed Active Pulmonary emboli Confirmed Active Pulmonary emboli Confirmed Active Pure hypercholesterolemia Confirmed Active Migraine with status migrainosus, not intractable Confirmed Active Procedures Procedure Date Related Diagnosis Body Site Status Appendectomy Completed Appendectomy Completed Colonoscopy 1 Completed Colonoscopy 2 Completed Cryotherapy 3 Completed Cryotherapy-cervical X3 4 Completed EGD (esophagogastroduodenosc opy) gastric outlet reduction Completed EGD - Esophagogastroduodenoscopy Completed History of A-V fistula Co mpleted Hysterectomy 5 Completed Laparoscopic hysterectomy Completed Laparoscopy Completed Laparoscopy Completed Oophorectomy 6 Completed Oophorectomy 7 Completed Rotator cuff repair 8 Com pleted Rotator cuff repair of tear Completed Tonsillectomy Completed Tonsillectomy Completed ; multi polyps, [facility] [id number] multiple polyps 3cervical cryotherapy x 3 4cervix 5endometriosis and abdominal pain 6one after ectopic and second at time of hysterectomy 7one after etopic and second at time of hysterectomy 8left Vital Signs Most recent to oldest [Reference Range]: 1 Peripheral Pulse Rate [60-100 bpm] 84 bp m (03/18/22 1:52 PM) Blood Pressure [90-140/60-90 mmHg] 112/7 0mmHg (03/18/22 1:52 PM) Weight 81.2 kg (03/18/22 1:52 PM) Weight Measured (lbs) 179.015 lb (03/18/22 1:52 PM) Social History Social History Type Response Tobacco Never tobacco user T obacco Use:. Sex Hospital Discharge Instructions Follow Up Care 03/18/2022 08:46:58 With:Charles Noel DO Address: [address] [place] [id number] When: only if needed Physician Outpatient Note * Charles Noel DO: PERFORM Event Display: Office Clinic Note Physician Authored Date: [id number] MAXIMO CHAUHAN :1955 Age:66 years Sex:Female Visit Date:03/18/2022 Primary Care Physician: Charles Noel, DO Chief Complaint Bilateral knee and shoulder issues.. Fell and hurt left knee cannont bend ??03/16/2022 Ear temp ?97.0 History of Present Illness Patient is a 66-year-old female who comes in today complaining of left knee pain.?? She says that she has a history of osteoarthritis in her knee.?? She has seen orthopedics in [place] multiple times for injections.?? Also saw Luis Eduardo here once for an injection into the knee.?? She says that2 days ago she was squatting in her home, trying to stand up, lost her balance and rolled over ontoher side landing on her knee and left hip.?? Denies any hip pain. She localizes the pain in her knee in the area of the pes anserine bursa.?? Able to bear weight. Review of Systems See HPI otherwise negative Physical Exam Vitals & Measurements HR:??84??(Peripheral)?? BP:??112/70?? SpO2:??98%?? WT:??81.2??kg?? General: Alert and oriented, well nourished,?No??acute distress Lungs: Clear to auscultation and percussion,?Non-labored?? respiration Heart:?Normal?? rate,?Regular??rhythm,?No??murmur,?No??gallop,?No??edema Abdomen: Soft, non-tender, non-distended,?Normal?? bowel sounds,?No??masses Musculoskeletal:?Normal?? range of motion and strength,?Except for decreased range of motion in her left knee mostly in flexion.?? Able to bear weight.?? The left knee is more swollen than the right, but patient indicates that this is chronic.?? There is no redness or deformity noted.?? Thereis some minimal tenderness in the vicinity of the pes anserine bursa.?? Ligaments are intact. Assessment/Plan 1.??Left knee injury??S89.92XA I do not appreciate any abnormalities that would warrant immediate imaging.?? She has chronic issues in the knee which appear to be exacerbated by the injury.?? She sees orthopedics in [place].?? I encouraged her to reconnect with them.?? In the meantime continue rest, ice, NSAIDs as needed. 2.??Arthritis of knee??M17.10 Follow Up Instructions With When Contact Information Charles Sadie, DO Only if needed [address] [place] [address] Additional Instructions: Problem List/Past Medical History Ongoing Asthma, exercise induced Bipolar 2 disorder Bipolar 2 disorder Cancer screening Chronic constipation Chronic GERD Chronic kidney disease, stage 3a Chronic kidney disease, stage 3a Chronic post-traumatic stress disorder (PTSD) Colon polyp Constipation, chronic Depression Essential hypertension Essential hypertension Exercise-induced asthma Fibromyalgia Fibromyalgia Gastric polyp GERD (gastroesophageal reflux disease) Hypercholesterolemia Hyperlipidemia, unspecified Hyperlipidemia, unspecified Hypothyroidism Hypothyroidism, unspecified Insomnia, unspecified Insomnia, unspecified Iron deficiency anemia, unspecified Iron deficiency anemia, unspecified Irritable bowel syndrome without diarrhea Major depressive disorder Major depressive disorder, single episode, unspecified Migraine with status migrainosus, not intractable Migraine, unspecified, not intractable, without status migrainosus OA (osteoarthritis) OAB (overactive bladder) Other chronic pain Other chronic pain Personality disorder Prediabetes Prediabetes Primary gonarthrosis, bilateral PTSD (post-traumatic stress disorder) Pulmonary emboli Pulmonary emboli Pure hypercholesterolemia Trochanteric bursitis Historical No qualifying data Procedure/Surgical History ???Appendectomy???Appendectomy???Colonoscopy???Colonoscopy???Cryotherapy- cervical X3???Cryotherapy???History of A-V fistula???EGD (esophagogastroduodenoscopy) gastric outlet reduction???EGD - Esophago gastroduodenoscopy???Hysterectomy???Laparoscopic hysterectomy???Laparoscopy???Laparoscopy???Oophorectomy???Oophorectomy???Rotator cuff repair of tear???Rotator cuff repair???Tonsillectomy???Tonsillectomy Medications aspirin 81 mg oral delayed release tablet, 81 mg= 1 tab, Oral, Daily atorvastatin 80 mg oral tablet, 80 mg= 1 tab, Oral, Daily, 3 refills baclofen 10 mg oral tablet, 5 mg= 0.5 tab, Oral, TID, 5 refills blood pressure kit, See instructions Cranberry oral capsule, 1000 mg, Daily Effexor XR 150 mg oral capsule, extended release, 150 mg= 1 cap, Oral, Daily Effexor XR 75 mg oral capsule, extended release, 75 mg= 1 cap, Oral, Daily Flonase 50 mcg/inh nasal spray, 1 sprays, Nasal, every evening gabapentin 600 mg oral tablet, 600 mg= 1 tab, Oral, TID, 3 refills IBU-200 oral tablet, 5 tablets, Oral levothyroxine 125 mcg (0.125 mg) oral tablet, 1 tab, Oral, every morning meloxicam 15 mg oral tablet, 15 mg= 1 tab, Oral, Daily, 1 refills MetFORMIN (Eqv-Glucophage XR) 500 mg oral tablet, extended release, 500 mg= 1 tab, Oral, Daily, 3 refills omeprazole 40 mg oral delayed release capsule, 40 mg= 1 cap, Oral, TID Pulmicort Flexhaler 90 mcg/inh inhalation powder, 2 puffs, Inhale, BID QUEtiapine 300 mg oral tablet, 300 mg= 1 tab, Oral, every night at bedtime SUMAtriptan 100 mg oral tablet, 100 mg= 1 tab, Oral, Daily, PRN, 3 refills Vitamin B-12 1000 mcg oral tablet, 1000 mcg= 1 tab, Oral, Daily Allergies Morphine Sulfate Sodium Hyaluronate Injection??(Unknown) morphine??(stomach upset) Social History Alcohol Never Electronic Cigarette/Vaping Electronic Cigarette Use: Unknown/not obtained. Home/Environment Lives with Alone. Substance Use Never Tobacco Never tobacco user Tobacco Use:. Family History Cancer: Father, Father and Sister. Diabetes mellitus: Mother and Mother. Heart disease: Father and Father. Hypertension: Mother, Mother, Father and Father. Thyroid: Mother. Family Member(s): ?? FATHER, at age: Unknown. Cause of : Family Member(s): ?? MOTHER, at age: Unknown. Cause of : Family Member(s): ?? FATHER, at age: Unknown. Cause of : colon cancer, heart disease, hypertension Family Member(s): ?? MOTHER, at age: Unknown. Cause of : diabetes, hypothyroidism, hypertension Family Member(s): ?? SISTER, at age: Unknown. Cause of : uterine cancer Immunizations Vaccine Date Status influenza virus vaccine, inactivated 01/08/2021 Recorded zoster vaccine, inactivated 09/24/2020 Recorded SARS-CoV-2 (COVID-19) mRNA-1273 vaccine 08/02/2020 Recorded influenza virus vaccine, inactivated 08/02/2020 Recorded tetanus/diphth/pertuss (Tdap) adult/adol 03/20/2019 Recorded pneumococcal 23-polyvalent vaccine 01/08/2019 Recorded influenza virus vaccine, inactivated 01/08/2019 Recorded pneumococcal 13-valent conjugate vaccine 02/18/2017 Recorded influenza virus vaccine, inactivated 02/18/2017 Recorded influenza virus vaccine, inactivated 03/04/2016 Recorded influenza virus vaccine, inactivated 03/27/2015 Recorded Electronically Signed on 03/18/22 05:15 PM Charles Noel DO Patient Care team information Personnel Name: Charles Noel DO Address: Address: [address] [place] [phone]
[2023-04-02 17:44] VITALS: BP 157/85; PULSE 108; RESP 16; TEMP 36.2; O2SAT 97
[2023-04-02 18:03] LABS: COVID-19 PCR Negative (Negative); Influenza A PCR Negative (Negative); Influenza B PCR Negative (Negative)
[2023-04-02 18:05] LABS: RSV PCR Positive (Negative); Source Nasopharynx
[2023-04-02 19:35] VITALS: BP 115/94; PULSE 107; RESP 16; O2SAT 95
[2023-04-02] MEDS: Albuterol HFA 8 GM 60 PUFF INH IH (19:35)
[2023-04-02] MEDS: Inhaler, Assist Device 1 EACH MC (19:35)
--- NOTE | 2023-04-02 19:40 | DI.VRAD_ITS ---
PROCEDURE INFORMATION: Exam: XR Chest Exam date and time: 04/02/2023 6:09 PM Age: 67 years old Clinical indication: Cough TECHNIQUE: Imaging protocol: Radiologic exam of the chest. Views: 2 views. COMPARISON: CR XR CHEST 2V PA LATERAL 01/09/2020 9:22 AM FINDINGS: Lungs: Clear lungs. Pleural spaces: No pneumothorax. No sizable pleural effusion. Heart/Mediastinum: No cardiomegaly. Bones/joints: Unremarkable. IMPRESSION: Clear lungs. Dictated and Authenticated by: Butch Rollins MD. Ordering:MAGALIE Elizabeth MD
== END 2023-04-02 19:38 | disposition home or self-care (01) ==
PROVIDERS: Emergency Provider Emergency Medicine; PCP Family Medicine
DX: J20.5 Acute bronchitis due to respiratory syncytial virus (principal); J45.901 Unspecified asthma with (acute) exacerbation; J44.1 Chronic obstructive pulmonary disease with (acute) exacerbation; E78.5 Hyperlipidemia, unspecified; I10 Essential (primary) hypertension; Z11.52 Encounter for screening for COVID-19
CPT/HCPCS: 87637; 94640; 99283; 71046; J7512; J7620

== ENCOUNTER 2023-06-27 13:36 | Outpatient (CLI) | payer MEDICARE, MEDICAID, SELFPAY ==
[2023-06-27 12:10] LABS: HCT 36.6 % (36.0-46.0); HGB 12.4 g/dL (11.2-15.7); MCH 31.7 pg (27.0-33.0); MCHC 33.9 % (32.0-36.0); MCV 94 fL (80-95); MPV 10.3 fL (8.0-11.0); Platelet Count 256 10^3/uL (130-400); RBC 3.91 10^6/uL (3.93-5.22); RDW 13.2 % (11.7-14.6); RDW-SD 45.5 fL; WBC 7.29 10^3/uL (4.4-10.8)
[2023-06-27 12:21] LABS: Anion Gap 11.6 mmol/L (3-11); BUN 21 mg/dL (7-18); CO2 25.4 mmol/L (21.0-32.0); CREATININE 1.6 mg/dL (0.55-1.02); Calcium 9.1 mg/dL (8.5-10.1); Chloride 102 mmol/L (98-107); Glucose 115 mg/dL (74-106); Potassium 4.2 mmol/L (3.5-5.1); Sodium 139 mmol/L (136-145)
[2023-06-28 17:41] LABS: Fructosamine 255 mcmol/L (200 - 285)
== END 2023-06-27 13:37 | disposition home or self-care (01) ==
LOC: LBO 13:37
PROVIDERS: PCP Family Medicine; Visit Provider Student in an Organized Health Care Education/Training Program
DX: M17.12 Unilateral primary osteoarthritis, left knee (principal); Z01.818 Encounter for other preprocedural examination
CPT/HCPCS: 36415; 80048; 85027; 82985

== ENCOUNTER 2023-07-05 08:22 | Day surgery (SDC) | payer MEDICARE, MEDICAID, SELFPAY ==
[2023-07-05] VITALS (9 sets, daily range): BP systolic 128–142; BP diastolic 63–93; PULSE 68–81; RESP 14–17; TEMP 36.3–36.6; O2SAT 96–98; BMI 30.4
--- NOTE | 2023-07-05 07:19 | PDOC.DSDIS_ITS ---
Date of service: 07/05/23 Time of Service: 07:19 Discharge Plan Disposition Patient Disposition: Home Condition: Good Discharge Details Reason For Visit: L TKR Attending Provider: hCase Patel Primary Care Provider: Charles Patterson Home Meds and New Rx's Prescriptions: New acetaminophen 500 mg tablet 1,000 mg PO TID Qty: 90 3RF celecoxib 200 mg capsule 200 mg PO BID Qty: 60 0RF dexamethasone 4 mg tablet 4 mg PO DAILY Qty: 2 0RF oxycodone 5 mg tablet 5 mg PO Q4H MDD 6 tabs PRN (Reason: pain) Qty: 20 0RF Continued Acidophilus Probiotic Complex 250 million cell capsule 1 cap PO DAILY atorvastatin 40 mg tablet 40 mg PO DAILY Qty: 90 3RF sumatriptan succinate 100 mg tablet 100 mg PO DIRECTED PRN (Reason: Headache) Qty: 10 3RF magnesium oxide 500 mg capsule 500 mg PO DAILY alprazolam 0.5 mg tablet 0.5 mg PO ONCE PRN (Reason: claustrophobia) Qty: 2 0RF Rx Instructions: Take within 3o minutes of MRI. Repeat x 1 if necessary. omeprazole 20 mg capsule,delayed release(DR/EC) 40 mg PO BID Qty: 60 2RF metformin 500 mg tablet 500 mg PO DAILY Pulmicort Flexhaler 90 mcg/actuation aerosol powdr breath activated 2 inh inhalation BID gabapentin 400 mg capsule 600 mg PO TID cranberry 500 mg capsule 1,000 mg PO DAILY fluticasone propionate [Flonase Allergy Relief] 50 mcg/actuation spray,suspension 1 spray intranasal QHS Rx Instructions: administer into each nostril venlafaxine [Effexor XR] 75 mg capsule,extended release 24hr 75 mg PO DAILY Rx Instructions: to be taken with 150mg cap, per pcp medlist venlafaxine [Effexor XR] 150 mg capsule,extended release 24hr 150 mg PO DAILY quetiapine 300 mg tablet 300 mg PO QHS multivitamin Tablet 1 tab PO DAILY promethazine 6.25 mg/5 mL syrup 12.5 mg PO Q6H PRN (Reason: cough) Qty: 120 0RF Discontinued aspirin [Aspir-81] 81 MG tablet,delayed release (DR/EC) 81 mg PO DAILY Discharge Instructions Additional Instructions: Total Knee Discharge Instructions Activity: The most important activity is to walk and to work on gentle motion (both flexion and extension). You should try to take short walks a few times a day. It is important that when resting you work on keeping the knee straight. Avoid putting a pillow behind the knee as this will encourage flexion. Work on range of motion exercises as provided by Physical Therapy. - Start outpatient physical therapy within 2 weeks. - You should wear the MOUNIKA hose on both legs for 2 weeks. You may remove these at night. You may also use any compression sock in place of the MOUNIKA hose. - Utilize [employer] to review exercises, see videos on exercises and obtain basic information pertaining to your surgery and your recovery. Dressing: Remove the Jesús wrap by 2 days after your surgery and put on the MOUNIKA stocking given to you from the hospital. Keep the surgical dressing (underneath the JESÚS wrap) in place for at least one week. After the first week it may be removed and replaced with light gauze and tape or nothing. The wound and dressing may get wet after 3 days but avoid soaking the dressing or otherwise it will need to be changed. Many people prefer covering the dressing with cling wrap (saran wrap) to minimize it from getting soaked. If it gets wet, just pat dry. If it starts to peel off then it will need to be changed. Medications: - You should take Tylenol and anti-inflammatory Celebrex as your primary pain control medications. If the Celebrex is too expensive or not covered, please call the office for another alternative (Advil/Ibuprofen or Naproxen/Aleve) - You have been prescribed a stronger pain medication Oxycodone for breakthrough pain, take as needed as prescribed. - You will continue your omeprazole to help reduce stomach acid and reflux. - You have been prescribed Gabapentin to take at night for restlessness and nerve pain. - You will be taking Aspirin 81mg twice a day for DVT prevention unless instructed otherwise. - You have also been prescribed Decadron to take to control post-operative nausea and pain. You will start this tomorrow. - If you have constipation you should take Colace or Miralax (both over-the- counter). It takes most people 3-4 days to have a bowel movement. Follow-up: 2 weeks If you have any acute concerns or questions, please do not hesitate to contact the office at [phone]. You may contact Dr. Patel with any questions after hours through the hospital at [phone] or on his cell phone at [phone]. Referrals: Chase Patel MD [ [facility] STAFF PHYSICIAN] - Equipment/Supplies: Walker Activity:: Activity as Tolerated Shower/Bathe:: 72 hours Diet:: As Tolerated DS: Diagnosis Discharge Diagnosis (1) Primary osteoarthritis of left knee: Status: Acute
[2023-07-05] MEDS: Lactated Ringers 1,000 ML 80 ML IV (09:16)
[2023-07-05] MEDS: Gabapentin 300 MG CAP PO (09:19)
[2023-07-05] MEDS: Celecoxib 200 MG CAP 400 MG PO (09:19)
[2023-07-05] MEDS: Acetaminophen 500 MG TAB 1000 MG PO (09:19)
--- NOTE | 2023-07-05 09:21 | W.ANESPRE ---
General Info Date of Service Date Performed: 07/05/23 Height: 5 ft 6 in Weight: 85.7 kg Body Mass Index (BMI): 30.4 Surgical Procedure: Operation Date: 07/05/23 11:25 Proposed Procedure Side Surgeon p Knee Total Arthroplasty, Cementless CR Left Chase Patel MD Meds Allergies and Home Medications Allergies Allergy/AdvReac Type Severity Reaction Status Date / Time morphine AdvReac Severe Very sick Verified 07/05/23 08:37 Home Medication Medication Instructions Recorded Lactobacill 1 cap PO DAILY 01/20/18 acidophilus-L.helvetic-B.bifidum 250 million cell capsule (Acidophilus Probiotic Complex) sumatriptan succinate 100 mg tablet 100 mg PO DIRECTED PRN Headache 04/20/18 #10 tabs omeprazole 20 mg capsule,delayed 40 mg (2 x 20 mg) PO BID #60 caps 09/25/18 release multivitamin 1 tab PO DAILY 07/11/19 budesonide 90 mcg/actuation breath 2 inh inhalation BID 05/12/21 activated powder inhaler (Pulmicort Flexhaler) cranberry 500 mg capsule 1,000 mg PO DAILY 05/12/21 fluticasone propionate 50 1 spray intranasal QHS 05/12/21 mcg/actuation nasal spray,suspension (Flonase Allergy Relief) gabapentin 400 mg capsule 600 mg PO TID 05/12/21 metformin 500 mg tablet 500 mg PO HS 05/12/21 quetiapine 300 mg tablet 300 mg PO QHS 05/12/21 venlafaxine 150 mg 150 mg PO DAILY 05/12/21 capsule,extended release 24 hr (Effexor XR) venlafaxine 75 mg capsule,extended 75 mg PO DAILY 05/12/21 release 24 hr (Effexor XR) magnesium oxide 500 mg capsule 500 mg PO HS 12/21/22 alprazolam 0.5 mg tablet 0.5 mg PO ONCE PRN claustrophobia 02/16/23 #2 tabs acetaminophen 500 mg tablet 1,000 mg (2 x 500 mg) PO TID #90 07/05/23 tabs atorvastatin 40 mg tablet 40 mg PO HS 07/05/23 celecoxib 200 mg capsule 200 mg PO BID #60 caps 07/05/23 dexamethasone 4 mg tablet 4 mg PO DAILY #2 tabs 07/05/23 oxycodone 5 mg tablet 5 mg PO Q4H PRN pain #20 tabs 07/05/23 Current Visit Medications: Current Medications Generic Name Dose Route Start Last Admin Trade Name Freq PRN Reason Stop Dose Admin Acetaminophen 1,000 mg 07/05/23 06:00 07/05/23 09:19 Acetaminophen 500 Mg Tab PO 08/03/23 23:59 1,000 mg PREOP [place] Administration Acetaminophen 1,000 mg 07/05/23 07:17 Acetaminophen 500 Mg Tab PO 08/04/23 08:29 TID PRN Analgesia Celecoxib 400 mg 07/05/23 06:00 07/05/23 09:19 Celecoxib 200 Mg Cap PO 08/03/23 23:59 400 mg PREOP [place] Administration Docusate Sodium 100 mg 07/05/23 07:17 Docusate Sodium 100 Mg Cap PO 08/04/23 07:16 BID PRN PRN Constipation Gabapentin 300 mg 07/05/23 06:00 07/05/23 09:19 Gabapentin 300 Mg Cap PO 08/03/23 23:59 300 mg PREOP [place] Administration Ringer's Solution 1,000 mls @ 80 mls/hr 07/05/23 06:00 07/05/23 09:16 IV 08/03/23 23:59 80 mls/hr INFUSION [place] Administration Cefazolin Sodium/Dextrose 2 gm in 50 mls @ 100 mls/hr 07/05/23 06:00 Ancef Duplex IVPB 07/05/23 16:00 PREOP [place] Tranexamic Acid/Sodium Chloride 1,000 mg in 100 mls @ 600 mls/hr 07/05/23 06:00 IVPB 07/05/23 16:00 PREOP [place] IV Miscellaneous Supplies 1 each 07/05/23 06:00 Iv Access IV 08/03/23 23:59 DIRECTED [place] Ondansetron HCl 4 mg 07/05/23 07:17 Ondansetron 4 Mg/2 Ml Vial IVP 08/04/23 07:16 Q6H PRN PRN Nausea Oxycodone HCl 0 mg 07/05/23 07:17 Oxycodone 5 Mg Tab PO 08/04/23 07:16 Q3H PRN PRN Pain Polyethylene Glycol 17 gm 07/05/23 07:17 Polyethylene Glycol 3350 17 Gm Packet PO 08/04/23 07:16 BID PRN PRN Constipation Sodium Chloride 0 ml 07/05/23 06:00 Normal Saline Flush 10 Ml Syr IV 08/03/23 23:59 PRN PRN Sodium Chloride 0 ml 07/05/23 06:00 Normal Saline 10 Ml Vial IJ 08/03/23 23:59 DIRECTED PRN Sterile Water 0 ml 07/05/23 06:00 Water,Injection,Sterile 10 Ml Vial IJ 08/03/23 23:59 DIRECTED PRN PFSH Active Problems Active Problems: Problem Status Onset Code Pes anserinus bursitis of left knee M70.52 Strain of tendon of left rotator cuff S46.012A Primary osteoarthritis of left knee M17.12 Primary osteoarthritis of right knee M17.11 Chronic GERD 11/08/17 K21.9 Chronic post-traumatic stress disorder (PTSD) 11/08/17 F43.12 Dysthymia 11/08/17 F34.1 Essential hypertension 11/08/17 I10 Fibromyalgia 11/08/17 M79.7 Hyperlipidemia 11/08/17 E78.5 Hypothyroidism 11/08/17 E03.9 Insomnia 11/08/17 G47.00 Iron deficiency anemia secondary to inadequate dietary iron intake 11/08/17 D50.8 Irritable bowel syndrome without diarrhea 11/08/17 K58.9 Major depressive disorder with single episode 11/08/17 F32.9 Migraine without status migrainosus 11/08/17 G43.909 Pulmonary emboli 11/08/17 I26.99 Rheumatism 11/08/17 M79.0 Uncomplicated asthma 11/08/17 J45.909 Polyp of colon 11/08/17 K63.5 Personality disorder 11/08/17 F60.9 Peripheral neuropathy G62.9 Right rotator cuff tendonitis M75.81 Pes anserinus bursitis of right knee M70.51 Arthritis of right shoulder region M19.011 Tendonitis of long head of biceps brachii of right shoulder M75.21 Bursitis of right shoulder M75.51 Impingement syndrome of right shoulder M75.41 Constipation K59.00 Medical History Medical History Fibromyalgia Anxiety IBS (irritable bowel syndrome) Migraines Hypercholesteremia Hypertension COPD (chronic obstructive pulmonary disease) Endometriosis Medical History Comments:: MD aware - patient's baseline bowel not regular; has been a approx week since last BM Surgical History Surgical History Tonsillectomy Rotator Cuff Repair Left Oophorectomy Laparoscopy Hysterectomy Cervical Cryotherapy x3 Appendectomy A-V Fistula Does not have fistula per pt. Tobacco Smoking/Tobacco Use Status: Never Alcohol Alcohol Intake: current Alcohol intake frequency: a few times a week Alcohol type: beer Substance Use Substance use: Never Substance use type: does not use Vital Signs and Lab Results Vital Signs Most Recent Vital Signs in EMR: Most Recent Vital Signs Temp Pulse Resp BP Pulse Ox 36.6 C 81 16 129/93 H 98 07/05/23 08:30 07/05/23 08:30 07/05/23 08:30 07/05/23 08:30 07/05/23 08:30 Lab Results Blood Type / Crossmatch: No Data to Display Complete Blood Count: White Blood Count 7.29 10^3/uL (4.4-10.8) 06/27/23 11:58 Red Blood Count 3.91 10^6/uL (3.93-5.22) L 06/27/23 11:58 Hemoglobin 12.4 g/dL (11.2-15.7) 06/27/23 11:58 Hematocrit 36.6 % (36.0-46.0) 06/27/23 11:58 Platelet Count 256 10^3/uL (130-400) 06/27/23 11:58 Complete Metabolic Panel: Sodium 139 mmol/L (136-145) 06/27/23 11:58 Potassium 4.2 mmol/L (3.5-5.1) 06/27/23 11:58 Chloride 102 mmol/L (98-107) 06/27/23 11:58 Carbon Dioxide 25.4 mmol/L (21.0-32.0) 06/27/23 11:58 BUN 21 mg/dL (7-18) H 06/27/23 11:58 Creatinine 1.6 mg/dL (0.55-1.02) H 06/27/23 11:58 Est GFR (CKD-EPI 2020) 34.70 (mL/min/1.73m2) 06/27/23 11:58 Calcium 9.1 mg/dL (8.5-10.1) 06/27/23 11:58 Glucose 115 mg/dL (74-106) H 06/27/23 11:58 Liver Function Panel: No Data to Display Coagulation Panel: No Data to Display Cardiac Panel: No Data to Display Arterial Blood Gas: No Data to Display Venous Blood Gas: No Data to Display Pancreas Panel: No Data to Display Thyroid Panel: No Data to Display Infectious Disease: No Data to Display Blood Cultures: No Data to Display Toxicology Panel: No Data to Display Anesthesia Assessment and Plan Anesthesia History Personal History: No History of Anesthesia Complications Family History: No Family History of Anesthesia Complications Exercise Tolerance Exercise Tolerance: Metabolic Equivalents>4 Pertinent Negatives Pertinent Negatives: No Symptoms of GERD and No Major Cardiovascular Symptoms or Complaints Cardiac & Pulmonary Exam Cardiac Exam: Normal S1/S2 Heart Sounds Pulmonary Exam: Clear Bilateral Breath Sounds Implantable Cardiac Device Does patient have a Pacemaker or an ICD?: No Airway Exam Known Difficult Airway: No Mallampati Class: 2 Mouth Opening: Normal (> 3cm) Thyromental Distance: Greater than 3 cm Neck Range of Motion: Full ROM Neck Circumference: Normal Teeth Condition: Generalized Poor Dentition ASA Classification ASA Score: ASA 3 Emergency Case?: No NPO Status NPO Status: NPO Clears >2 hours, Solids >8 hours Anesthesia Plan Resuscitation Status: Full Code Anesthesia Technique: Spinal Anesthesia Airway Planned: Natural Airway Pain Management: Surgeon and patient request nerve block Monitors Used: Standard Monitors
[2023-07-05] MEDS: ceFAZolin 2 GM/50 ML BAG IVPB (10:08)
[2023-07-05] MEDS: TRANEXAMIC ACID/SOD. CHL. 1,000 MG/100 ML BAG 600 MG IVPB (10:26)
--- NOTE | 2023-07-05 10:45 | W.ANESNERVE ---
Nerve Block Single Injection Procedure Date and Time Date Performed: 07/05/23 Procedure Start: 09:50 Location Where Procedure Performed Procedure Location: Day Surgery Unit Reason Performed: Postoperative Analgesia Requesting Provider: Chase Patel Timeout Performed Timeout Performed: Yes Monitoring Used ECG, Blood Pressure, SpO2 and See EMR for corresponding vital signs Sterility Sterility: Hand Hygiene, Surgical Cap, Surgical Mask, Sterile Gloves and Chlorhexidine Sedation Given During Procedure Sedation Given (Indicate Dose Given): No Sedation given Patient Mental Status Patient Mental Status: Awake Nerve Block 1st Nerve Block: Laterality: Left Block Type: Adductor Canal Ultrasound Image Saved?: Yes Needle / Catheter Used: 100mm SonoPlex II Local Anesthetic Bolus (Indicate Dose Given): Lidocaine used for local infiltration of skin, Injected in 3-5ml increments after negative blood aspiration and Bupivacaine 0.25% Dose:: 20ml Additives (Indicate Dose Given): None Ultrasound: Sterile probe cover and gel used Nerve Stimulator: Not Used Paresthesia: None Procedure Tolerated: No Complications and Patient tolerated well Procedure Outcome: Successful Performed By: Nelson Quintanilla
--- NOTE | 2023-07-05 11:45 | ROE_ITS ---
Date of service: 07/05/23 Time of Service: 10:15 Operative Note Operative Note DATE OF PROCEDURE: 07/05/23 PRE-OP DIAGNOSIS: Left Knee Osteoarthritis POST-OP DIAGNOSIS: same PROCEDURE: Left Total Knee Replacement SURGEON: Chase Patel INSTRUCTOR GROUND SERVICES: Linh Norton ANESTHESIA TYPE: Spinal Refer to Anesthesia Record ESTIMATED BLOOD LOSS: 100 PATHOLOGY: none sent TOURNIQUET TIME: 0 COMPLICATIONS: None Patient was transported to: PACU Patient's condition: stable Implants: 1. Depuy Attune Cementless Cruciate Retaining Femoral Component, Size 5 2. Depuy Attune Cementless Fixed Bearing Tibial Component, Size 5 3. Depuy Attune 5x10 CR/FB Poly 4. Depuy Attune Patellar Component, Size 35 Indications: I have seen Cecilia in clinic for symptoms of knee arthritis, confirmed with radiographic findings. She has exhausted nonoperative methods and was having significant limitations in daily function and desired better function and less pain. I discussed the technical details of a knee replacement. I explained the risks of the procedure to include, but not limited to, bleeding, infection, pain, stiffness, fracture, damage to nerves and vessels, damage to muscles and tendons, loosening, need for repeat procedure, blood clot and cardiopulmonary demise. Despite these risks, Cecilia elected to proceed. Findings: There was significant signs of arthritis throughout the knee, focused medially, along with a loose peripheral medial tibial fragment. Procedure Description: Cecilia was greeted in the preoperative holding area where the correct side was identified and marked. The consent was reviewed with the patient and signed. The history and physical was updated. All questions were answered. Preoperative medications were administered: Acetaminophen 1000mg, Celebrex 400mg, and Gabapentin 300mg. An adductor canal block was then administered by the anesthesia team in the PACU. Cecilia was taken back to the operating room. A spinal anesthestic was then administered. The patient was placed into the supine position on the operating room table. A nonsterile tourniquet was placed high onto the leg but only used for cementing. Posts were placed for positioning during the procedure. All bony prominences were well padded. Prophylactic antibiotics in the form of Cefazolin were administered. 1g of Tranxemic Acid was given intravenously within 30 minutes of incision. The left leg was then prepped with Chloraprep and draped in a standard fashion with impervious stockinette. A second prep with Chloraprep was performed prior to application of Iodine impregnated skin protection. A timeout to confirm correct identity, side and site, procedure, allergies, anesthesia, and medical concerns was performed. With the knee in some flexion, a midline incision was made overlying the knee. Full thickness skin flaps were raised once the extensor mechanism was encountered. These were raised medially and laterally. Any bleeding was controlled with electrocautery. Once the extensor mechanism was fully exposed, a medial parapatellar arthrotomy was performed in a flexed position. All bleeding from the arthrotomy and the geniculate arteries was coagulated. A medial subperiosteal peel was performed with electrocautery to the midcoronal plane. Due to the significant varus deformity the entire medial tibial plateau was exposed. The fat pad was removed while keeping the patellar tendon protected. The anterior distal femur synovium was removed for later visualization. The ACL and PCL were resected and the anterior horn of the lateral meniscus was transected. The knee was then flexed with the patella everted. Large osteophytes from the tibia were removed. Large osteophytes from the femur were removed. Using a step drill, and based on preoperative templating, the femoral canal was entered. This was done with a step drill without any difficulty. The intramedullary distal femoral cut guide was inserted, set to a 5 degree valgus cut and 9mm cut thickness. The distal femoral cut guide was then held in position and pinned. With the soft tissues protected, the distal cut was performed. This was passed over a few times to ensure a planar cut. I then turned attention to the tibia. The extramedullary guide was placed onto the leg. The distal aspect was slid medial to adjust for position of center of ankle and stay in line with shaft of the tibia. Approximately 3-5 degrees of posterior slope was kept in the proximal cutting guide. The center of the guide was aligned with the PCL. The stylus was used to assess cut thickness. The medial side, most involved side, was set for a 4mm cut. This was then held in position and pinned into place with 2 additional pins and a cross pin for stability. The medial and lateral collateral ligaments were protected and the cut was performed. With this completed, it was assessed and noted to be of appropriate dimensions. The guide was removed. A spacer block was inserted and the knee was brought into extension. The 8mm spacer block provided full extension, without hyperextension and with stability of both the medial and lateral collateral ligaments was assessed. The pins from the femur and the tibia were then removed. The distal femur was then sized. The anterior stylus was placed onto the lateral ridge of the anterior femur. This indicated a size 5 femur. The external rotation of the guide was adjusted to 0 degrees to match the epicondylar axis, perpendicular to Nany?s line. The 4-in-1 cutting guide was the placed. The posterior medial femur cut was evaluated and appeared of good thickness. The spacer block was inserted underneath the cutting guide and stability was confirmed in 90 degrees of flexion. An tyler wing was used to confirm appropriate position of the anterior cut to avoid notching. This cutting guide was ensured to be flush on the cut surface and then pinned into place with headed pins. While protecting the soft tissues, quad tendon, and collateral ligaments, the anterior and posterior cuts were performed with a saw. The central two pins were removed and the posterior and anterior chamfers were cut next. The notch-cutting guide was placed. This was pinned to lateralize the femoral component as much as possible while keeping it flush on the cut surface. This was then pinned into position. A reciprocating saw was used to make the notch cut. A rasp smoothed the cut surfaces. The medial and lateral menisci were removed. A trial femoral component was then inserted, impacted down to the cut surfaces, and the lug holes were drilled. A provisional trial tibial component was placed and the knee was brought through range of motion. There was noted to be excellent extension and flexion. There was no significant instability. The polyethylene was trialed until there was good flexion and extension with excellent stability to the medial and lateral collaterals. The patella was tracking without thumbs. A size 10mm polyethylene component provided the best range of motion and stability with less than 2mm gapping with medial and lateral stress and full extension without significant hyperextension. The tibial cut surface was fully exposed. The tibia was then sized as a 5. The tibia had been previously marked during trialing to correspond to the center of the tibial component to help with rotation. The trial was aligned to this linh, approximately rotated to the medial 1/3rd of the tibial tubercle. The trial was pinned into place. The tibia was prepared with a reamer and a keel punch and lug holes. The knee was then brought into extension and the patella was measured as 22mm. Using the patellar clamp and cut guide, this was resected to a flat surface with at least 13mm of thickness remaining. The size 35 patella fit the best. This was oriented and then clamped into position. The lugs were drilled. The trial components were removed. The final components were opened on the back table. The periosteal and capsular tissues, especially posteriorly, around the knee were then systematically injected with a periarticular cocktail consisting of 246mg of Ropivacaine, 0.5mg of Epinephrine, 0.08mg of Clonidine, and 30mg of Ketorolac, diluted to 100cc. On the back table, with the implants opened, the cement was mixed. One batch of high viscosity cement was prepared with vacuum assistance. After the cement was ready a small amount was placed on the cut surface of the patella and the patellar button was clamped into position and held. While the cement was harden ing, the cementless knee components were placed. Starting with the tibial component, the tibia was subluxed anteriorly and the lug holes of the component were lined up. The tibia was then impacted with an impactor and mallet until the tibial component was in contact with the tibia. The final polyethylene component was inserted. Then, the femoral component was inserted. The lug holes were aligned and the component was impacted into position. The knee was irrigated with Surgiphor Betadine solution. This was allowed to sit in the knee for 3 minutes and then it was irrigated out with saline. After the cement had finally cured, approximately 15min, the clamp was removed from the patella and the knee was taken through range of motion. The patella was tracking with a no-thumbs technique. The capsule was then reapproximated with a No. 1 Vicryl at multiple locations. The capsule was finally closed with a No. 2 Stratafix, barbed suture. The second dosing of 1g TXA was started. Deep tissues were then reapproximated with 0 Vicryl and 2-0 Vicryl. The skin was closed with a running 3-0 Monocryl in a subcuticular fashion. This was reinforced with skin glue. A Mepilex silver dressing was applied along with a [id number] PAULA wrap. A CryoCuff was applied. Cecilia was transferred to the hospital bed without difficulty an suffering no apparent complication. Cecilia has a good prognosis. Physical therapy will start today and without restrictions, weight-bearing as tolerated. Aspirin 81mg BID will be used for DVT prophylaxis.
--- NOTE | 2023-07-05 12:33 | W.ANESPOSTOP ---
Postoperative Evaluation Date, Time and Location Date Performed: 07/05/23 Time Performed: 12:33 Patient Location: Day Surgery Unit Vital Signs Most Recent Imported Vital Signs: Most Recent Vital Signs Temp Pulse Resp BP Pulse Ox 36.5 C 68 15 131/72 96 07/05/23 12:30 07/05/23 12:30 07/05/23 12:30 07/05/23 12:30 07/05/23 12:30 Pain Score Most Recent Pain Score: Most Recent Pain Score Pain Level 0 07/05/23 12:30 Assessment Mental Status: Awake (Alert & Oriented to Patient Baseline) Airway and Respiratory Function: Patent airway with normal (patient baseline) respiratory exam Cardiovascular Function: Hemodynamically Stable Hydration Status: Adequately Hydrated Nausea & Vomiting: No Nausea or Vomiting Pain: Pt. Denies Any Pain Peripheral Nerve Block: Regional nerve block not resolved at time of post operative discharge
--- NOTE | 2023-07-05 13:56 | IN_ITS ---
PT Notes Visit Reasons: L TKR Physical Therapy Day Surgery Initial Evaluation Date: 07/05/2023 Referring Doctor: ELLIE Ron PT Orders: PT CONSULT: S/P Ortho Surgery Precautions: WBAT on left LE with AD. Patient Profile/Admitting Diagnosis: Ainsley is a 67-year-old female with primary osteoarthritis of the left knee and status post left total knee arthroplasty on postoperative day 0. PMHX: Medical History Fibromyalgia Anxiety IBS (irritable bowel syndrome) Migraines Hypercholesteremia Hypertension COPD (chronic obstructive pulmonary disease) Endometriosis Surgical History Tonsillectomy Rotator Cuff Repair LeftOophorectomy Laparoscopy Hysterectomy Cervical Cryotherapy x3 Appendectomy A-V Fistula Does not have fistula per pt. Social History/Home Situation: Lives with friend in a private home with 2 steps to enter without rails. Son lives close by and will be providing assistance as needed as she recovers. Independent of all aspects of ADLs prior to surgery although had been having increasing difficulty with mobility ADL performance due to worsening arthritis. Equipment Owned/DME: None Subjective: Reported 0/10 pain on the left knee throughout session. Did indicate some pulling sensation on the back of the knee with walking. Denied headache, chest pain, and lightheadedness throughout session. Verbalized mild instability on the left knee during ambulation due to buckling episodes. No falls in the past year. Objective: General Observation: Resting in bed. PAULA wraps to left LE. Cryocuff to left knee. TEDS to right foot and leg. Mental Status: A and O x 4 Pain: Denied ROM: Right Lower Extremity: Hip flexion WFL. Hip abduction WFL. Knee flexion WFL. Ankle dorsiflexion WFL. Ankle plantarflexion WFL. Left Lower Extremity: Hip flexion WFL. Hip abduction WFL. Knee flexion 10 degrees to 100 degrees. Knee extension -10 degrees. Ankle dorsiflexion WFL. Ankle plantarflexion WFL. Strength: Right Lower Extremity: Hip flexors 5/5. Hip abductors 5/5. Knee flexors 5/5. Knee extensors 5/5. Ankle dorsiflexors 5/5. Ankle plantarflexors 5/5. Left Lower Extremity:Hip flexors 5/5. Hip abductors 5/5. Knee flexors 5/5. Knee extensors 5/5. Ankle dorsiflexors 5/5. Ankle plantarflexors 5/5. Sensation: Some numbness felt in the L thigh and leg Bed Mobility/Transfers: Minimal cueing provided for use of B hands as needed for support, movement sequence, AD management, and posture to reduce fall risk and minimize pain report Supine to sit contact guard assist Sit to stand contact guard assist Stand to sit contact guard assist Bed to chair contact guard assist Gait: 20 feet from bed side to bathroom using FWW with 2 episodes of buckling. 100 feet from bathroom to hallway with 5 episodes of mild buckling but no LOB. Nurses Alice and Valerie aware. Moderate verbal cueing provided to ensure full knee extension on the left at mid stance prior to advancing of the right LE to minimize buckling episodes. Stairs: Guided patient with safe and correct negotiation of 3 x 4 inch steps and 2 x 6 inch step holding onto bilateral rails with close guarding provided to R knee during descent to minimize buckling of right knee. Balance: Static Sitting: Normal Dynamic Sitting: Normal Static Standing: Fair Dynamic Standing: Fair Special Tests: Mobility Limitations Standardized Measure [facility] AM-PAC 6 clicks Basic Mobility Inpatient Short Form: Raw Score: 20 CMS Score: 36% deficit Informed Consent/Education: Patient instructed in purpose of PT consult. Packet containing TKA exercise protocol has been given to patient. Education and training on initial set of exercises that can be done at home have been completed with patient. Trained patient with correct performance of exercises below to maximize motor control, joint flexibility, soft tissue extensibility of the L knee musculature: Access Code: [email or web address] URL: [email or web address] Date: 07/05/2023 Prepared by: Marsha Matute Exercises - Supine Quad Set - 1 x daily - 7 x weekly - 1 sets - 10 reps - 5 hold - Supine Heel Slide - 1 x daily - 7 x weekly - 1 sets - 10 reps - 5 hold - Supine Ankle Pumps - 1 x daily - 7 x weekly - 1 sets - 10 reps - 5 hold - Small Range Straight Leg Raise - 1 x daily - 7 x weekly - 1 sets - 10 reps - 5 hold - Seated June - 1 x daily - 7 x weekly - 1 sets - 10 reps - 5 hold Assessment: Patient requires use of a front wheel walker for mobility ADL performance maximize independence and reduce fall risk. Quad activation on left impaired, orthopedic surgeon made aware by Nurses Carol and Alice Patient presents with clinical signs and symptoms consistent with current/admitting diagnoses that have resulted to mobility limitations, gait instability, generalized weakness, and impairment of motor control as demonstrated by the following impairment level findings: 1. Decreased strength to left knee major muscle groups 2. Impaired standing balance 3. Limitation of joint range of motion in left knee Impairments are contributing to the following functional limitations: 1. Inability to safely ambulate without assistive device 2. Increase completion time for mobility ADL performance 3. Increased fall risk Patient is assessed as a 70988 complexity based on the following: History: 67-year-old female with impairment level findings, functional limitations, and past medical history as indicated above Examination: Demonstrable impairment in strength, balance, and mobility level with underlying impairments and functional limitations as documented above Presentation: Evolving Decision Makin moderate complexity Goals: N/A. PT evaluation and 1-2 treatment sessions only for functional mobility training using recommended AD and for HEP instruction. Plan of Care/Treatment Plan: N/A. PT evaluation and 1-2 treatment session only for functional mobility training using recommended AD and for HEP instruction. DISCHARGE RECOMMENDATIONS: Home when medically cleared by orthopedic surgeon. Recommend outpatient PT services in order to optimize functional mobility outcomes and facilitate return to independent community ambulation without an assistive device. TREATMENT CODE/TIME: 9716 2 x 20 minutes for 1 unit, 9753 0 x 24 minutes for 2 units (13:56-14:40). Thank you for the opportunity to participate in the care of this patient. Please sign an return this page within 30 days if you agree with the above POC. Thank you! Physician Signature Date [facility] Thank you for the opportunity to participate in the care of this patient. Marsha Matute PT, DPT, CLT [facility] [place], [place]
[2023-07-05] MEDS: Tranexamic Acid 650 MG TAB 1300 MG PO (14:16)
== END 2023-07-05 15:30 | disposition home or self-care (01) ==
LOC: SUR 08:23
PROVIDERS: PCP Family Medicine; Visit Provider Student in an Organized Health Care Education/Training Program
PROC: (CPT 27447; principal; 2023-07-05 11:15)
DX: M17.12 Unilateral primary osteoarthritis, left knee (principal); I10 Essential (primary) hypertension; E78.5 Hyperlipidemia, unspecified; E03.9 Hypothyroidism, unspecified; J44.9 Chronic obstructive pulmonary disease, unspecified
CPT/HCPCS: 27447; C1776; 76942; 97162; 97530; J0665; J0690; J1100; J2250; J2401; J2405; J2704

== ENCOUNTER 2023-07-18 15:52 | Outpatient (CLI) | payer MEDICARE, MEDICAID, SELFPAY ==
--- NOTE | 2023-07-18 14:15 | DI.RAD_ITS ---
Exam(s) XR KNEE LT 1V XR STANDING ALIGNMENT EXAM: XR STANDING ALIGNMENT CLINICAL HISTORY: 1ST POST OP S/P L TKA. TECHNIQUE: 2D digital imaging was performed. Standing AP views were performed from the pelvis throu gh the ankles. COMPARISON: CR XR STANDING ALIGNMENT from 03/17/2023 CR XR KNEE LT 1V from 07/18/2023 FINDINGS: BONES: No acute fracture is present. No bony destructive lesion is seen. Leg length discrepancy: JOINTS: Knees: A left knee prosthesis has been placed since the previous exam. The alignment appears satisfactory. No abnormal surrounding bony lucencies. The ankle joints are unremarkable. The hip joints are unremarkable. SOFT TISSUE: Normal. IMPRESSION: Status post placement of left total knee prosthesis. No significant leg length discrepancy. DATA REPOSITORY: RADIATION DOSE DELIVERED:
== END 2023-07-18 15:53 | disposition home or self-care (01) ==
LOC: DIORS 15:53
PROVIDERS: PCP Family Medicine; Visit Provider Student in an Organized Health Care Education/Training Program
DX: Z96.652 Presence of left artificial knee joint (principal); Z47.1 Aftercare following joint replacement surgery
CPT/HCPCS: 73560; 77073

== ENCOUNTER → 2023-08-15 14:48 | Outpatient (BNVA) | payer MEDICARE, MEDICAID, SELFPAY | PROVIDERS: PCP Family Medicine; Referring Provider Family Medicine; Visit Provider Student in an Organized Health Care Education/Training Program | DX: Z47.1 Aftercare following joint replacement surgery (principal); Z96.652 Presence of left artificial knee joint ==

== ENCOUNTER → 2023-09-26 14:45 | Outpatient (BNVA) | payer MEDICARE, MEDICAID, SELFPAY | PROVIDERS: PCP Family Medicine; Referring Provider Family Medicine; Visit Provider Student in an Organized Health Care Education/Training Program | DX: Z47.1 Aftercare following joint replacement surgery (principal); Z96.652 Presence of left artificial knee joint ==

== ENCOUNTER 2024-05-28 19:17 | Outpatient (REF) | payer MEDICARE, MEDICAID, SELFPAY | END 2024-05-28 19:18 | disposition home or self-care (01) | LOC: LBN 19:17 | PROVIDERS: PCP Family Medicine; Visit Provider Nurse Practitioner Family | DX: R30.0 Dysuria (principal) | CPT/HCPCS: 87077; 87086; 87186 ==

== ENCOUNTER 2024-08-02 17:07 | Emergency (ER) | payer MEDICARE, MEDICAID, SELFPAY ==
[2024-08-02 17:12] VITALS: BP 159/84; PULSE 105; RESP 16; O2SAT 98
[2024-08-02 17:15] VITALS: BP 159/84; PULSE 105; RESP 16; O2SAT 98
--- NOTE | 2024-08-02 17:30 | DI.CT_ITS ---
Exam(s) CT ABDOMEN PELVIS W EXAM: CT ABDOMEN PELVIS W CLINICAL HISTORY: RUQ tenderness. TECHNIQUE: Imaging Protocol: Axial computed tomography images with coronal and sagittal reformatted images were created and reviewed CONTRAST MATERIAL: Intravenous: Omnipaque 350 Contrast volume:75 ml Oral: no COMPARISON: CT ABD PELVIS WO CONTRAST from 09/22/2007 FINDINGS: ABDOMEN and PELVIS: Lung Bases: No acute findings. Liver: Normal density. No suspicious mass. Gallbladder and biliary tract: No radiodense calculus. No wall thickening or pericholecystic fluid. No biliary dilation. Pancreas: Somewhat atrophic. No abnormal calcifications or inflammatory process. No evidence of mass . Spleen: Normal. Kidneys: Normal size, contour and axis. No radiodense stones. No obstructive uropathy. No suspicious masses seen. Adrenal glands: No masses seen. Vasculature: Abdominal aorta non-dilated. Soft tissues: Unremarkable. Bladder: Nearly empty. No gross wall thickening. No calculi.No focal mass. Bowel: No obstruction. No bowel wall thickening. Appendix is not seen. Stool noted throughout colo n, with exception of the recto sigmoid, which could indicate constipation. Peritoneal cavity: No ascites. No focal collection. No mesenteric inflammatory response. No free air . Bones: Unremarkable for age. Reproductive organs: Hysterectomy. Lymph nodes: No pathologically enlarged lymph nodes. IMPRESSION:: No acute abnormality in the abdomen or pelvis. Increased stool is noted throughout the colon, consistent with constipation. RADIATION DOSE DELIVERED: Total DLP DATA REPOSITORY: All CT scans at this facility are submitted to the National Radiology Data Registry (NRDR) Dose Index Registry (DIR) with the [employer] ([employer]). RADIATION OPTIMIZATION: All CT scans at this facility use at least one of these dose optimization te chniques: automated exposure control; mA and/or kV adjustment per patient size (includes targeted exa ms where dose is matched to clinical indication); or iterative reconstruction.
--- NOTE | 2024-08-02 17:32 | ED.GENADUL_ITS ---
Discharge Plan Disposition Patient Disposition: Home Condition: Stable Discharge Details Clinical Impression: Dehydration, Constipation Primary Care Provider: Charles Patterson ED Provider: Elijah Barahona Home Meds and New Rx's Prescriptions: Continued sumatriptan succinate 100 mg tablet 100 mg PO DIRECTED PRN (Reason: Headache) Qty: 10 3RF magnesium oxide 500 mg capsule 500 mg PO HS omeprazole 20 mg capsule,delayed release(DR/EC) 40 mg PO BID Qty: 60 2RF metformin 500 mg tablet 500 mg PO HS Pulmicort Flexhaler 90 mcg/actuation aerosol powdr breath activated 2 inh inhalation BID gabapentin 400 mg capsule 600 mg PO TID cranberry 500 mg capsule 1,000 mg PO DAILY venlafaxine [Effexor XR] 75 mg capsule,extended release 24hr 75 mg PO DAILY Rx Instructions: to be taken with 150mg cap, per pcp medlist venlafaxine [Effexor XR] 150 mg capsule,extended release 24hr 150 mg PO DAILY quetiapine 300 mg tablet 300 mg PO QHS atorvastatin 40 mg tablet 40 mg PO HS Discharge Instructions Instructions: Constipation, Adult ED, Dehydration, Adult ED Additional Instructions: You were seen in the emergency department for your right-sided abdominal pain, there shows increased stool burden throughout the entire colon especially on the right side, please drink more water, your kidneys have a mild injury from dehydr ation, this is likely why you experience frequent bouts of constipation and require laxatives. Please return for any severe increase in abdominal pain especially fever, intractable nausea or vomiting, chest pain shortness of breath or other emergent concerns. Referrals: Charles Patterson [Primary Care Provider] - [facility] General Date/Time Provider Initiated Documentation: 08/02/24 17:25 . HPI Narrative: 69 year-old female presents to ED today by POV/ambulating with a chief complaint of 2 years of frequent UTI, 1 treated a month ago, diffuse gut soreness, history of IBS states that she has to take laxatives after frequent bouts of constipation with onset chronically. Quality described as mostly left-sided abdominal tenderness, no radiation to intractable nausea or vomiting, complete constipation or not passing flatus, fever, hematuria, chest pain, shortness of breath. Severity is described as moderate. Palliating factors include nothing specific. Provoking factors include nothing specific. Patient not anticoagulated. Related Data Home Medications ?Medication ?Instructions ?Recorded ?Confirmed sumatriptan succinate 100 mg tablet 100 mg PO DIRECTED PRN Headache 04/20/18 08/02/24 #10 tabs omeprazole 20 mg capsule,delayed 40 mg (2 x 20 mg) PO BID #60 caps 09/25/18 08/02/24 release budesonide 90 mcg/actuation breath 2 inh inhalation BID 05/12/21 08/02/24 activated powder inhaler (Pulmicort Flexhaler) cranberry 500 mg capsule 1,000 mg PO DAILY 05/12/21 08/02/24 gabapentin 400 mg capsule 600 mg PO TID 05/12/21 08/02/24 metformin 500 mg tablet 500 mg PO HS 05/12/21 08/02/24 quetiapine 300 mg tablet 300 mg PO QHS 05/12/21 08/02/24 venlafaxine 150 mg 150 mg PO DAILY 05/12/21 08/02/24 capsule,extended release 24 hr (Effexor XR) venlafaxine 75 mg capsule,extended 75 mg PO DAILY 05/12/21 08/02/24 release 24 hr (Effexor XR) magnesium oxide 500 mg capsule 500 mg PO HS 12/21/22 08/02/24 atorvastatin 40 mg tablet 40 mg PO HS 07/05/23 08/02/24 Previous Rx's ?Medication ?Instructions ?Recorded sumatriptan succinate 100 mg tablet 100 mg PO DIRECTED PRN Headache 04/20/18 #10 tabs omeprazole 20 mg capsule,delayed 40 mg (2 x 20 mg) PO BID #60 caps 09/25/18 release Allergies Allergy/AdvReac Type Severity Reaction Status Date / Time morphine AdvReac Severe Very sick Verified 08/02/24 17:15 General Stated Complaint: Abd Prob JOSE: 3 Review of Systems All systems reviewed & are unremarkable except as noted in HPI and below Exam Narrative Exam Narrative: GENERAL APPEARANCE: Well-nourished, non-toxic, awake and alert, atraumatic, no acute distress. SKIN: Warm, pink, dry, intact, without rashes/lesions/ulcerations. HEAD: Normocephalic, atraumatic, normal hair distribution for gender/age. EYES: Normal conjunctiva, no exudates on lids/lashes. ENT: Nares patent, no circumoral cyanosis, no facial swelling NECK: Supple, trachea midline, painless cervical ROM. LUNGS/CHEST: Non-labored respirations, normal A/P diameter, symmetrical expansion, no chest wall deformity HEART (CV/PV): No peripheral edema, no JVD. ABDOMEN: Soft, non-distended, no guarding, L sided abdominal tenderness, L CVA tenderness to percussion. MSK: Normal ROM, no swelling/deformity to bilateral UEs or LEs, moving all extremities without weakness, no cyanosis, spine midline without tenderness, normal curvature. NEURO: Mental Status AAOx4 - alert to person, place, time, events No facial droop, no forehead involvement. Motor: No focal weakness - strength 5/5 in bilateral UEs and LEs, proximal and distal, symmetric. Sensory: sensation intact to light touch globally. Gait normal: patient ambulated without ataxia into ED room. PSYCH: euthymic, cooperative, pleasant, appropriate speech Course Vital Signs Vital signs: Vital Signs Pulse 105 H 08/02/24 17:12 Respiratory Rate 16 08/02/24 17:12 Blood Pressure 159/84 H 08/02/24 17:12 Pulse Oximetry 98 08/02/24 17:12 Pulse 105 H 08/02/24 17:15 Respiratory Rate 16 08/02/24 17:15 Blood Pressure 159/84 H 08/02/24 17:15 Pulse Oximetry 98 08/02/24 17:15 Pain Level 8 08/02/24 17:15 Medical Decision Making This dictation utilizes [id number] dictation software and may contain unedited grammatical errors. 69 year-old female presents to ED today by POV/ambulating with a chief complaint of 2 years of frequent UTI, 1 treated a month ago, diffuse gut soreness, history of IBS states that she has to take laxatives after frequent bouts of constipation with onset chronically. Quality described as mostly left-sided abdominal tenderness, no radiation to intractable nausea or vomiting, complete constipation or not passing flatus, fever, hematuria, chest pain, shortness of breath. Severity is described as moderate. Palliating factors include nothing specific. Provoking factors include nothing specific. Patients' medical history: Fibromyalgia, IBS, hypertension, COPD, endometriosis, chronic GERD. Family and social history: Noncontributory states she eats small bits of food throughout the day not large meals. Pertinent exam findings / vital signs include left lower abdominal tenderness and suprapubic tenderness with left CVA tenderness percussion, benign cardiopulmonary exam, nontoxic and afebrile. Differential / pathologies of concern include left-sided renal colic, diverticulitis, ovarian cyst, colitis, gastroenteritis, constipation. Diagnostic studies of: - CBC, CMP, lactate, CRP, lipase, UA, CT ABD/pelvis with contrast. -CBC shows no leukocytosis, shows chronic anemia - Lactate negative - CMP shows MARK ANTHONY with creatinine 1.7 slightly above her prior baseline 0.5 - Magnesium within normal limits - CRP negative - Lipase negative - UA shows no signs of infection, does show proteinuria likely due to patient's kidney function - CT only shows increased stool burden consistent with constipation, no hydronephrosis or renal stone seen Interventions of: -1 L IVF NS. ED Course/Assessment/Plan: 69-year-old female with intermittent constipation requiring laxatives presents with left and lower abdominal intermittent episodic pain worse than prior episodes, also reporting some UTI symptoms, UA is negative for any UTI, CT is negative for any acute abnormality save for increased stool burden, she does have a mild MARK ANTHONY likely she is having persistent constipation due to chronic dehydration. I encouraged her to increase her fluid intake and take laxatives after a few days of increased fluid, strict return criteria for any intractable nausea or vomiting or fever, severe worsening of abdominal pain. Findings not consistent with ovarian pathology, diverticulitis, blockage, renal colic, infected kidney stone, UTI. Disposition of Dehydration, Constipation. Patient verbalized understanding of the plan and return to ED criteria and engaged in shared decision making. Medical Records Medical records reviewed: Yes I reviewed the patient's medical records. Imaging Data Radiologic Study: Attestation: I personally reviewed and interpreted this imaging study as follows: Imaging: CT Scan Radiologist's impression: EXAM: CT ABDOMEN PELVIS W CLINICAL HISTORY: RUQ tenderness. TECHNIQUE: Imaging Protocol: Axial computed tomography images with coronal and sagittal reformatted images were created and reviewed CONTRAST MATERIAL: Intravenous: Omnipaque 350 Contrast volume:75 ml Oral: no COMPARISON: CT ABD PELVIS WO CONTRAST from 09/22/2007 FINDINGS: ABDOMEN and PELVIS: Lung Bases: No acute findings. Liver: Normal density. No suspicious mass. Gallbladder and biliary tract: No radiodense calculus. No wall thickening or pericholecystic fluid. No biliary dilation. Pancreas: Somewhat atrophic. No abnormal calcifications or inflammatory process. No evidence of mass. Spleen: Normal. Kidneys: Normal size, contour and axis. No radiodense stones. No obstructive uropathy. No suspicious masses seen. Adrenal glands: No masses seen. Vasculature: Abdominal aorta non-dilated. Soft tissues: Unremarkable. Bladder: Nearly empty. No gross wall thickening. No calculi.No focal mass. Bowel: No obstruction. No bowel wall thickening. Appendix is not seen. Stool noted throughout colon, with exception of the recto sigmoid, which could indicate constipation. Peritoneal cavity: No ascites. No focal collection. No mesenteric inflammatory response. No free air. Bones: Unremarkable for age. Reproductive organs: Hysterectomy. Lymph nodes: No pathologically enlarged lymph nodes. IMPRESSION:: No acute abnormality in the abdomen or pelvis. Increased stool is noted throughout the colon, consistent with constipation. Lab Data Lab results reviewed: Yes I reviewed the patient's lab results. Labs: Laboratory Tests Range/Units 08/02/24 08/02/24 17:15 17:54 WBC (4.4-10.8) 10^3/uL 7.75 RBC (3.93-5.22) 10^6/uL 3.54 L Hgb (11.2-15.7) g/dL 10.2 L Hct (36.0-46.0) % 32.4 L MCV (80-95) fL 92 MCH (27.0-33.0) pg 28.8 MCHC (32.0-36.0) % 31.5 L RDW (11.7-14.6) % 14.3 Plt Count (130-400) 10^3/uL 311 MPV (8.0-11.0) fL 10.2 Immature Gran % % 0.3 Neutrophils % % 54.5 Lymphocytes % % 33.8 Monocytes % % 6.5 Eosinophils % % 3.9 Basophils % % 1.0 Nucleated RBC % (0.0-0.3) % 0.0 Absolute Neutrophils (1.2-6.7) 10^3/uL 4.23 Absolute Lymphocytes (1.2-3.4) 10^3/uL 2.62 Absolute Monocytes (0.1-0.8) 10^3/uL 0.50 Absolute Eosinophils (0.0-0.7) 10^3/uL 0.30 Absolute Basophils (0.0-0.2) 10^3/uL 0.08 VBG Lactate (<or=2.0) mmol/L 1.9 Sodium (136-145) mmol/L 143 Potassium (3.5-5.1) mmol/L 4.1 Chloride (98-107) mmol/L 107 Carbon Dioxide (21.0-32.0) mmol/L 25.2 Anion Gap (3-11) mmol/L 10.8 BUN (7-18) mg/dL 24 H Creatinine (0.55-1.02) mg/dL 1.7 H Est GFR (CKD-EPI 2020) (mL/min/1.73m2) 31.86 Glucose (74-106) mg/dL 130 H Calcium (8.5-10.1) mg/dL 8.7 Magnesium (1.8-2.4) mg/dL 2.2 Total Bilirubin (0.2-1.0) mg/dL 0.2 AST (15-37) U/L 24 ALT (14-59) U/L 27 Alkaline Phosphatase (46-116) U/L 98 C-Reactive Protein (<or=0.5) mg/dL < 0.50 Total Protein (6.4-8.2) g/dL 7.5 Albumin (3.4-5.0) g/dL 4.0 Lipase (<78) U/L 20 Urine Color (Yellow) Yellow Urine Clarity (Clear) Clear Urine pH (5-8) 5.5 Ur Specific [place] (1.005-1.025) >= 1.030 H Urine Protein (Neg-Trace) mg/dL 30 H Urine Ketones (Negative) mg/dL 15 H Urine Blood (Negative) Negative Urine Nitrite (Negative) Negative Urine Bilirubin (Negative) Negative Urine Urobilinogen (Up to 0.2) mg/dL 0.2 Ur Leukocyte Esterase (Negative) Negative Urine RBC (0-2) HPF Negative Urine WBC (0-5) HPF Negative Ur Epithelial Cells (Negative) HPF Few Urine Crystals (Negative) HPF Negative Urine Bacteria (Negative) HPF Rare Urine Casts (Negative) LPF 3-5 Hyaline Urine Mucus (Negative) Moderate Urine Other (Negative) Rare Transitional Ur Culture Indicated? No Urine Glucose (Negative) mg/dL Negative Quality:SDOH Health Related Social Needs: No Data to Display PFSH All Active Problems (Updated 08/02/24 @ 19:02 by ELLIE Bosch) Constipation (Acute) Dehydration (Acute) History of total left knee replacement (Acute 07/05/23) Pes anserinus bursitis of left knee (Acute) Injection: 04/26/2022; 09/10/2021 Strain of tendon of left rotator cuff (Acute) Primary osteoarthritis of right knee (Acute) Multiple steroid injections in the past by Dr. Frederick Chronic GERD (Acute 11/08/17) Chronic post-traumatic stress disorder (PTSD) (Acute 11/08/17) Dysthymia (Acute 11/08/17) Essential hypertension (Acute 11/08/17) Fibromyalgia (Acute 11/08/17) Hyperlipidemia (Acute 11/08/17) Hypothyroidism (Acute 11/08/17) Insomnia (Acute 11/08/17) Iron deficiency anemia secondary to inadequate dietary iron intake (Acute 11/08/17) Irritable bowel syndrome without diarrhea (Acute 11/08/17) Major depressive disorder with single episode (Acute 11/08/17) Migraine without status migrainosus (Acute 11/08/17) Pulmonary emboli (Acute 11/08/17) Rheumatism (Acute 11/08/17) Uncomplicated asthma (Acute 11/08/17) Polyp of colon (Acute 11/08/17) Personality disorder (Acute 11/08/17) Peripheral neuropathy (Acute) [facility] D[facility] Right rotator cuff tendonitis (Acute) Pes anserinus bursitis of right knee (Acute) Arthritis of right shoulder region (Acute) Tendonitis of long head of biceps brachii of right shoulder (Acute) Bursitis of right shoulder (Acute) Impingement syndrome of right shoulder (Acute) Constipation (Acute) Medical History Fibromyalgia Anxiety IBS (irritable bowel syndrome) Migraines Hypercholesteremia Hypertension COPD (chronic obstructive pulmonary disease) Endometriosis Surgical History Tonsillectomy Rotator Cuff Repair Left Oophorectomy Laparoscopy Hysterectomy Cervical Cryotherapy x3 Appendectomy A-V Fistula Does not have fistula per pt. Family History Mother Diabetes Essential hypertension Hypothyroidism Father Essential hypertension Heart disease Neoplasm Colon Sister Neoplasm Uterin Social History Smoking/Tobacco Use Status: Never Smoking risk assessment performed?: Yes Alcohol Intake: current Alcohol Intake frequency: a few times a week Alcohol type: beer Drug use: Never Substance use type: does not use Adopted: No Housing: house Number of Children: 1 current occupation: not working Current gender identity: female What is your relationship status?: Panel score (0-1 are the most socially isolated patients): 0 What type of physical activity do you participate in: walking Seatbelt use: always Drive intox or ride w/intox trencher driver: No Working smoke detector in home: Yes Fire extinguisher in home: No Carbon monox detector in home: No Do you feel safe at home: Yes Do you feel safe in your relationship?: Yes Additional Social history: unable to assess privately
[2024-08-02 17:56] LABS: Bilirubin Negative (Negative); Blood Negative (Negative); Clarity Clear (Clear); Glucose Negative (Negative); Ketones 15 mg/dL (Negative); Leukocyte Esterase Negative (Negative); Nitrite Negative (Negative); Specific Gravity >= 1.030 (1.005-1.025); Urobilinogen 0.2 mg/dL (Up to 0.2); pH 5.5 (5-8)
[2024-08-02 18:03] LABS: Lactate 1.9 mmol/L (<or=2.0)
[2024-08-02 18:05] LABS: Abs Immature Grans 0.02 10^3/uL (0.0-0.06); Absolute Basophil Count 0.08 10^3/uL (0.0-0.2); Absolute Lymphocyte Count 2.62 10^3/uL (1.2-3.4); Absolute Neutrophil Count 4.23 10^3/uL (1.2-6.7); Eosinophils % 3.9 %; HCT 32.4 % (36.0-46.0); HGB 10.2 g/dL (11.2-15.7); Immature Grans % 0.3 %; Lymphocytes % 33.8 %; MCH 28.8 pg (27.0-33.0); MCHC 31.5 % (32.0-36.0); MCV 92 fL (80-95); MPV 10.2 fL (8.0-11.0); Monocytes % 6.5 %; Neutrophils % 54.5 %; Platelet Count 311 10^3/uL (130-400); RBC 3.54 10^6/uL (3.93-5.22); RDW 14.3 % (11.7-14.6); RDW-SD 47.8 fL; WBC 7.75 10^3/uL (4.4-10.8)
[2024-08-02 18:12] LABS: Bacteria Rare HPF (Negative); C & S Indicated? No; Casts 3-5 Hyaline LPF (Negative); Crystals Negative HPF (Negative); Epithelial Cells Few HPF (Negative); Mucus Moderate (Negative); Other Cells Rare Transitional (Negative); RBC Negative HPF (0-2); WBC Negative HPF (0-5)
[2024-08-02 18:19] LABS: ALT 27 U/L (14-59); AST 24 U/L (15-37); Alkaline Phosphatase 98 U/L (46-116); Anion Gap 10.8 mmol/L (3-11); BUN 24 mg/dL (7-18); Bilirubin, Total 0.2 mg/dL (0.2-1.0); CO2 25.2 mmol/L (21.0-32.0); CREATININE 1.7 mg/dL (0.55-1.02); Calcium 8.7 mg/dL (8.5-10.1); Chloride 107 mmol/L (98-107); Estimated GFR 31.86 (mL/min/1.73m2); Glucose 130 mg/dL (74-106); Lipase 20 U/L (<78); Magnesium 2.2 mg/dL (1.8-2.4); Potassium 4.1 mmol/L (3.5-5.1); Sodium 143 mmol/L (136-145); Total Protein 7.5 g/dL (6.4-8.2)
[2024-08-02] MEDS: Omnipaque 350 MG/ML 100 ML BTL IJ (18:36)
[2024-08-02] MEDS: Normal Saline - Diluent 50 ML VIAL IJ (18:38)
[2024-08-02 18:40] LABS: C-Reactive Protein < 0.50 mg/dL (<or=0.5)
[2024-08-02] MEDS: Normal Saline Flush 10 ML SYR IVP (18:40)
[2024-08-02] MEDS: Normal Saline 1,000 ML 1000 ML IV (18:48)
[2024-08-02 19:21] VITALS: BP 156/82; PULSE 76; RESP 18; O2SAT 98
== END 2024-08-02 19:22 | disposition home or self-care (01) ==
LOC: ER 19:31
PROVIDERS: Emergency Provider Physician Assistant; PCP Family Medicine
DX: E86.0 Dehydration (principal); K59.00 Constipation, unspecified; I10 Essential (primary) hypertension; E78.5 Hyperlipidemia, unspecified; J44.9 Chronic obstructive pulmonary disease, unspecified; Z79.84 Long term (current) use of oral hypoglycemic drugs
CPT/HCPCS: 36415; 80053; 83690; 96361; 99285; 74177; 81003; 81015; 83605; 83735; 85025; 86140; 99284; J3490

== ENCOUNTER 2024-08-16 10:16 | Outpatient (CLI) | payer MEDICARE, MEDICAID, SELFPAY ==
--- NOTE | 2024-08-16 09:45 | DI.RAD_ITS ---
Exam(s) XR KNEE LT 2V AP,LAT EXAM: XR KNEE LT 2V AP,LAT CLINICAL HISTORY: ANNUAL F/U L TKA. TECHNIQUE: 2D digital imaging was performed. Two images were obtained. AP and lateral views were ob tained. COMPARISON: CR XR KNEE LT 1V from 07/18/2023 FINDINGS: BONES: There are stable post operative changes of a left total knee arthroplasty present. No fractur e or dislocation. JOINTS: The orthopedic hardware is in good position. No evidence of hardware loosening. SOFT TISSUE: There are dystrophic well corticated osseous densities at the inferior aspect of the pat purnima which appear chronic. IMPRESSION: Stable left total knee arthroplasty. DATA REPOSITORY: RADIATION DOSE DELIVERED:
== END 2024-08-16 10:17 | disposition home or self-care (01) ==
LOC: DIORS 10:19
PROVIDERS: PCP Emergency Medicine Undersea and Hyperbaric Medicine; Referring Provider Emergency Medicine Undersea and Hyperbaric Medicine; Visit Provider Student in an Organized Health Care Education/Training Program
DX: Z96.652 Presence of left artificial knee joint (principal); Z47.1 Aftercare following joint replacement surgery
CPT/HCPCS: 99213; 73560

== ENCOUNTER 2025-02-07 09:35 | Emergency (ER) | payer MEDICARE, MEDICAID, SELFPAY ==
[2025-02-07 09:40] VITALS: BP 168/81; PULSE 87; RESP 16; TEMP 36.4; O2SAT 99
--- NOTE | 2025-02-07 10:00 | DI.RAD_ITS ---
Exam(s) XR KNEE RT 3V AP,LAT,HAMZAH EXAM: XR KNEE RT 3V AP,LAT,HAMZAH CLINICAL HISTORY: medial right knee pain after fall. TECHNIQUE: 2D digital imaging was performed of the right knee. Three views obtained. AP, lateral and PA tunnel views were obtained. COMPARISON: CR XR KNEE RT 3V AP,LAT,HAMZAH from 06/08/2021 FINDINGS: BONES: No acute fracture is present. No bony destructive lesion is seen. JOINTS: The knee is normally aligned. There is a small joint effusion. SOFT TISSUE: Normal. IMPRESSION: There is no acute fracture or dislocation. DATA REPOSITORY: RADIATION DOSE DELIVERED:
[2025-02-07] MEDS: Diclofenac 1% Gel 100 GM TUBE TP (10:21)
--- NOTE | 2025-02-07 10:46 | ED.GENADUL_ITS ---
Discharge Plan Disposition Patient Disposition: Home Condition: Good Discharge Details Clinical Impression: Injury of right knee Primary Care Provider: Elian Marquez ED Provider: Elijah Napoles Home Meds and New Rx's Prescriptions: New lidocaine [Lidoderm] 5 % adhesive patch,medicated 1 patch Topical Q24H Qty: 15 0RF No Action sumatriptan succinate 100 mg tablet 100 mg PO DIRECTED PRN (Reason: Headache) Qty: 10 3RF magnesium oxide 500 mg capsule 500 mg PO HS omeprazole 20 mg capsule,delayed release(DR/EC) 40 mg PO BID Qty: 60 2RF metformin 500 mg tablet 500 mg PO HS Pulmicort Flexhaler 90 mcg/actuation aerosol powdr breath activated 2 inh inhalation BID gabapentin 400 mg capsule 600 mg PO TID cranberry 500 mg capsule 1,000 mg PO DAILY venlafaxine [Effexor XR] 75 mg capsule,extended release 24hr 75 mg PO DAILY Rx Instructions: to be taken with 150mg cap, per pcp medlist venlafaxine [Effexor XR] 150 mg capsule,extended release 24hr 150 mg PO DAILY quetiapine 300 mg tablet 300 mg PO QHS atorvastatin 40 mg tablet 40 mg PO HS Discharge Instructions Instructions: Acute Pain, Adult Additional Instructions: At this time your x-ray shows no evidence of fracture. I suspect there is a sprain and contusion of the knee. However as we discussed together there may be a small injury that we are not able to visualize on the x-ray. This may require an MRI. As we discussed, unfortunately we are unable to facilitate an MRI in the ED for the knee at this time. Please follow-up closely with your primary care provider or your medical accounts receivable specialist for potential repeat imaging if your symptoms do not improve with conservative therapy over the next 1 to 2 weeks. Please remain nonweightbearing for your right knee for the next week, and then gradually apply pressure as tolerated. Please apply the Voltaren gel every 4-6 hours, continue your Tylenol and Motrin, and apply the Lidoderm patches as prescribed. Ice your knee frequently. If you notice any worsening of your symptoms, or any new symptoms such as vomiting, diarrhea, fever, chills, shortness of breath, chest pain, numbness, weakness, or fainting , please return immediately to the emergency department for reevaluation. Please follow up with your primary care provider as soon as p ossible for reassessment and reevaluation. As always, it was a pleasure participating in your medical care today. Stand Alone Forms: Portal Information, Work Release Referrals: Elian Marquez DO [Primary Care Provider, Medicine] Chase Patel MD [ [facility] STAFF PHYSICIAN, Orthopaedic Surgical] HPI General Date/Time Provider Initiated Documentation: 02/07/25 09:47 . HPI Narrative: This is a 69-year-old female with past medical history of left knee replacement, fibromyalgia, irritable bowel syndrome, migraines, high cholesterol, hypertension, COPD, who presents today for evaluation of right-sided knee pain after fall. Patient fell on the right knee 3 days ago, it was on the medial aspect of the knee. She has pain with movement and any weightbearing since then. She has noticed swelling. She has been taking Motrin which has only slightly helped improve the symptoms. She denies any pain anywhere else or any other significant trauma. She does have an orthopedic appointment on 11 March with her medical accounts receivable specialist. No numbness or tingling. No other modifying factors. Related Data Home Medications Medication Instructions Recorded Confirmed sumatriptan succinate 100 mg tablet 100 mg PO DIREC MOUNIKA PRN Headache 04/20/18 08/02/24 #10 tabs omeprazole 20 mg capsule,delayed 40 mg (2 x 20 mg) PO BID #60 caps 09/25/18 08/02/24 release budesonide 90 mcg/actuation breath 2 inh inhalation BI D 05/12/21 08/02/24 activated powder inhaler (Pulmicort Flexhaler) cranberry 500 mg capsule 1,000 mg PO DAILY 05/12/21 0 08/02/24 gabapentin 400 mg capsule 600 mg PO TID 05/12/2108/02 metformin 500 mg tablet 500 mg PO HS 05/12/21 quetiapine 300 mg tablet 300 mg PO QHS 05/12/2108/02 venlafaxine 150 mg 150 mg PO DAILY 05/12/2104/28 capsule,extended release 24 hr (Effexor XR) venlafaxine 75 mg capsule,extended 75 mg PO DAILY 11/2308/02/24 release 24 hr (Effexor XR) magnesium oxide 500 mg capsule 500 mg PO HS 12/21/22 0 08/02/24 atorvastatin 40 mg tablet 40 mg PO HS 07/05/23 5 lidocaine 5 % topical patch 1 patch topical Q24H #15 e a 02/07/25 (Lidoderm) Previous Rx's Medication Instructions Recorded sumatriptan succinate 100 mg tablet 100 mg PO DIREC MOUNIKA PRN Headache 04/20/18 #10 tabs omeprazole 20 mg capsule,delayed 40 mg (2 x 20 mg) PO BID #60 caps 09/25/18 release lidocaine 5 % topical patch 1 patch topical Q24H #15 e a 02/07/25 (Lidoderm) Allergies Allergy/AdvReac Type Severity Reaction Status Date / Time morphine AdvReac Severe Very sick Verified 08/16/24 10:11 General Stated Complaint: Orthopedic JOSE: 4 Exam Narrative Exam Narrative: 1.Const: Well-nourished, Well-developed, appearing stated age 2.Eyes: PERRL, no conjunctival injection, and symmetrical lids. 3.ENT: Atraumatic external nose and ears. Moist MM. Neck: Symmetric, trachea midline, No thyromegaly. 4.CVS: +S1/S2, Peripheral pulses 2+ and equal in all extremities. Brisk capillary refill in all extremities. 5.RESP: Unlabored respiratory effort. Clear to auscultation bilaterally. No wheezes rales or rhonchi 6.GI: Soft, Nontender/Nondistended, No hepatosplenomegaly. No guarding or rebound. 7.MSK: Right knee demonstrates mild swelling on the anterior medial aspect, no patellar tenderness, no fibular tenderness, no tenderness on the anterior or lateral tibial plateau. Minimal tenderness over the medial aspect of the tibial plateau. Pain is worsened with valgus stressing, minimal pain with varus stressing. Positive pain with Jacek's test. No significant laxity with anterior posterior drawer testing. Questionable mild laxity with valgus stressing. No redness warmth or deformity otherwise. 8.Skin: Warm, Dry. No rashes or lesions. 9.Neuro: suction worker II-XII grossly intact. Sensation grossly intact, no focal neurologic deficits. 10.Psych: (AAO) x3. Appropriate mood and affect Course Vital Signs Vital signs: Vital Signs Temperature 36.4 C L 02/07/25 09:40 Pulse 87 02/07/25 09:40 Respiratory Rate 16 02/07/25 09:40 Blood Pressure 168/81 H 02/07/25 09:40 Pulse Oximetry 99 02/07/25 09:40 Temperature 36.4 C L 02/07/25 09:40 Temperature Source Temporal Artery Scan 02/07/25 09:40 Pulse 87 02/07/25 09:40 Respiratory Rate 16 02/07/25 09:40 Blood Pressure 168/81 H 02/07/25 09:40 Blood Pressure Position Supine 02/07/25 09:40 Pulse Oximetry 99 02/07/25 09:40 Oxygen Delivery Method Room Air 02/07/25 09:40 Oxygen Flow Rate 0 02/07/25 09:40 Pain Level 8 02/07/25 10:14 Medical Decision Making This is a 69-year-old female with past medical history of left knee replacement, fibromyalgia, irritable bowel syndrome, migraines, high cholesterol, hypertension, COPD, who presents today for evaluation of right-sided knee pain after fall. Patient fell on the right knee 3 days ago, it was on the medial aspect of the knee. She has pain with movement and any weightbearing since then. She has noticed swelling. She has been taking Motrin which has only slightly helped improve the symptoms. She denies any pain anywhere else or any other significant trauma. She does have an orthopedic appointment on 11 March with her medical accounts receivable specialist. No numbness or tingling. No other modifying factors. Right knee demonstrates mild swelling on the anterior medial aspect, no patellar tenderness, no fibular tenderness, no tenderness on the anterior or lateral tibial plateau. Minimal tenderness over the medial aspect of the tibial plateau. Pain is worsened with valgus stressing, minimal pain with varus stressing. Positive pain with Jacek's test. No significant laxity with anterior posterior drawer testing. Questionable mild laxity with valgus stressing. No redness warmth or deformity otherwise. Symptoms are concerning for potential osseous injury as well as ligamentous component. Differential includes tibial plateau fracture, bursal inflammation, or contusion. Will get x-ray, apply Voltaren gel, monitor closely and reassess. 11:50 AM X-ray shows no evidence of acute process. The patient was able to get up and walk with a mild limp. She declined crutches, as she has a pair at home as well as a walker. Recommend continued Voltaren gel, Lidoderm patches, and close follow-up with orthopedics. I discussed with her that she may require an MRI or CT imaging if her symptoms do not improve over the next 1 to 2 weeks with conservative therapy. Patient understands. With the patient's ability to ambulate symptoms appear inconsistent with significant tibial plateau fracture. Discussed red flags for which to return. Suspect contusion, sprain, and bursal irritation. I have extensively reviewed the treatment plan and discharge instructions with the patient. I have addressed all patient concerns at this time. The patient was made aware of what symptoms to monitor for that would warrant a return to the emergency department. Discussed the plan with the patient, they demonstrate verbal understanding and agreement with our assessment and plan at this time. The documentation in this chart was dictated using [employer] dictation software. Please excuse any dictation errors. FINDINGS: BONES: No acute fracture is present. No bony destructive lesion is seen. JOINTS: The knee is normally aligned. There is a small joint effusion. SOFT TISSUE: Normal. IMPRESSION: There is no acute fracture or dislocation. PFSH All Active Problems (Updated 02/07/25 @ 11:51 by Elijah Napoles DO) Injury of right knee (Acute) Pes anserinus bursitis of left knee (Acute) Injection: 04/26/2022; 09/10/2021 Strain of tendon of left rotator cuff (Acute) Primary osteoarthritis of right knee (Acute) Multiple steroid injections in the past by Dr. Frederick Chronic GERD (Acute 11/08/17) Chronic post-traumatic stress disorder (PTSD) (Acute 11/08/17) Dysthymia (Acute 11/08/17) Essential hypertension (Acute 11/08/17) Fibromyalgia (Acute 11/08/17) Hyperlipidemia (Acute 11/08/17) Hypothyroidism (Acute 11/08/17) Insomnia (Acute 11/08/17) Iron deficiency anemia secondary to inadequate dietary iron intake (Acute 11/08/17) Irritable bowel syndrome without diarrhea (Acute 11/08/17) Major depressive disorder with single episode (Acute 11/08/17) Migraine without status migrainosus (Acute 11/08/17) Pulmonary emboli (Acute 11/08/17) Rheumatism (Acute 11/08/17) Uncomplicated asthma (Acute 11/08/17) Polyp of colon (Acute 11/08/17) Personality disorder (Acute 11/08/17) Peripheral neuropathy (Acute) [place]-Nani Zamorano DPM Right rotator cuff tendonitis (Acute) Pes anserinus bursitis of right knee (Acute) Arthritis of right shoulder region (Acute) Tendonitis of long head of biceps brachii of right shoulder (Acute) Bursitis of right shoulder (Acute) Impingement syndrome of right shoulder (Acute) Constipation (Acute) Medical History (Updated 02/07/25 @ 11:51 by Elijah Napoles DO) Fibromyalgia Anxiety IBS (irritable bowel syndrome) Migraines Hypercholesteremia Hypertension COPD (chronic obstructive pulmonary disease) Endometriosis Surgical History (Updated 08/16/24 @ 10:11 by ELLIE Ron) History of total left knee replacement (07/05/23) Tonsillectomy Rotator Cuff Repair Left Oophorectomy Laparoscopy Hysterectomy Cervical Cryotherapy x3 Appendectomy A-V Fistula Does not have fistula per pt. Family History Mother Diabetes Essential hypertension Hypothyroidism Father Essential hypertension Heart disease Neoplasm Colon Sister Neoplasm Uterin Social History Smoking/Tobacco Use Status: Never Smoking risk assessment performed?: Yes Alcohol Intake: current Alcohol Intake frequency: a few times a week Alcohol type: beer Drug use: Never Substance use type: does not use Adopted: No Housing: house Number of Children: 1 current occupation: not working Current gender identity: female What is your relationship status?: Panel score (0-1 are the most socially isolated patients): 0 What type of physical activity do you participate in: walking Seatbelt use: always Drive intox or ride w/intox mobile lounge driver or operator: No Working smoke detector in home: Yes Fire extinguisher in home: No Carbon monox detector in home: No Do you feel safe at home: Yes Do you feel safe in your relationship?: Yes Additional Social history: unable to assess privately PAWSS Have you Been Recently Intoxicated or Drunk Within the Last 30 days?: No Have you Ever Experienced Previous Episodes of Alcohol Withdrawal?: No Have you ever Experienced Withdrawal Seizures?: No Have you ever Experienced Delirium Tremens(DT)s?: No Have you ever undergone Alcohol Rehabilitation Treatment (i.e, inpt ot outpatient treatment programs)?: No Have you ever Experienced Blackouts?: No Have you ever Combined Alcohol with other Downers within the last 90 days?: No Have you ever Combined Alcohol with any other Substance of Abuse during the last 90 days?: No Result: 0
[2025-02-07] MEDS: Lidocaine 5% Patch 1 PATCH TP (11:11)
== END 2025-02-07 12:32 | disposition home or self-care (01) ==
PROVIDERS: Emergency Provider Student in an Organized Health Care Education/Training Program; PCP Emergency Medicine Undersea and Hyperbaric Medicine
DX: M25.561 Pain in right knee (principal)
CPT/HCPCS: 99283 ×2; 73562

== ENCOUNTER → 2025-03-11 08:51 | Outpatient (BNVA) | payer MEDICARE, MEDICAID, SELFPAY | PROVIDERS: PCP Emergency Medicine Undersea and Hyperbaric Medicine; Referring Provider Emergency Medicine Undersea and Hyperbaric Medicine; Visit Provider Physician Assistant | DX: M17.11 Unilateral primary osteoarthritis, right knee (principal); W19.XXXA Unspecified fall, initial encounter | CPT/HCPCS: 99213; 20610; J1010 ==